=== PATIENT | female | born 1955 | race Caucasian/White ===

== ENCOUNTER → 2016-03-18 09:21 | Outpatient (CLI) | payer BC ==
[2015-10-17 10:50] VITALS: BMI 47.1
[~2016-03-18 09:21] MED LIST: ALDACTAZIDE 25/1 TAB PO; ASPIRIN81 MG PO; AUGMENTIN 875-11 TAB PO; BACTRIM DS TABL1 TAB PO; CLEOCIN HCL300 MG PO; COREG6.25 MG PO; DILANTIN100 MG PO; GABITRIL16 MG PO; GLUCOPHAGE1000 MG PO; LANTUS SOL100 UNIT/1 SQ; LISINOPRIL2.5 MG PO; LIVALO4 MG PO; LOZOL 2.5 MG T2.5 MG PO; NORCO 10/325 TA1 TA1 PO; NOVOLOG MI100 UNIT/1 SQ; PLAVIX75 MG PO; SYNTHROID50 MCG PO; TRILIPIX135 MG PO
[2016-03-21 13:14] LABS: TIAGABINE - TIAG 45.8 ng/ml (())
--- NOTE | 2016-03-31 07:17 | EEG ---
PATIENT:APOLINAR CHENEY DATE OF SERVICE: 03/18/16 MEDICAL RECORD: [id number] DATE OF : 53 LOCATION: [facility] ADMISSION DATE: 03/18/16 REFERRING PHYSICIAN: INTERPRETING PHYSICIAN: LAINA TORRES MD DATE OF SERVICE: 03/18/2016 Referred by myself as an outpatient. ELECTROENCEPHALOGRAM NUMBER: [id number]. DATE OF EXAMINATION: 03/18/2016 at 11:00 a.m. DATE OF : 1955. TECHNICAL DATA: This electroencephalographic recording consists of approximately 20 minutes of data collection utilizing the international 10/20 system of electrode placement and both referential and non-referential montages. Sixteen channels of electrocerebral recording are accompanied by a 17th channel dedicated to the electrocardiographic rhythm and 2 channels of electromyographic recording. Recording is performed in the awake and drowsy states utilizing activation by photic stimulation. ELECTROENCEPHALOGRAPHIC DATA: The awake state comprises approximately 60% of the recorded electrocerebral activity. Electromyographic artifact is prominent and rapid eye movements are seen. The posterior dominant background consists of a well-developed, symmetric, rhythmic, waxing and waning alpha activity of 8-9 Hz, which is suppressed by eye opening. The drowsy state comprises the remaining portion of the recorded electrocerebral activity. Electromyographic artifact is diminished and rapid eye movements are not seen. Also observed is an intermittent irregular, generalized and symmetric 2-3 Hz delta slowing, which occurs for periods of 1-2 seconds approximately once every 1-2 pages. No abnormal or focal slowing is identified. No epileptiform discharges are seen. Photic stimulation induces no abnormal change in the recorded electrocerebral activity. INTERPRETATION: Normal (awake and drowsy). This is a normal electroencephalographic recording. TRANSINT:[id number] Voice Confirmation ID: [id number] DOCUMENT ID: [id number] ELECTROENCEPHALOGRAM REPORT [id number] APOLINAR CHENEY LAINA TORRES MD at 0717 CC: [id number] DICTATION DATE: 03/19/16 0836 COURTESY CLERK: 03/19/16 0903 DEP CLI 03/18/16 [place] [address]
== END | disposition home or self-care (01) ==
LOC: D.CN 09:21
PROVIDERS: Psychiatry & Neurology Neurology
DX: G40.101 Localization-related (focal) (partial) symptomatic epilepsy and epileptic syndromes with simple partial seizures, not intractable, with status epilepticus (principal); G60.9 Hereditary and idiopathic neuropathy, unspecified; G21.8 Other secondary parkinsonism

== ENCOUNTER 2016-03-24 11:34 | Inpatient (IN) | payer BC ==
[~2016-03-24] VITALS: Ht 167.6 cm; Wt 154.3 kg
[2016-03-24] VITALS (7 sets, daily range): BP systolic 90–130; BP diastolic 50–74; BMI 48.8
[2016-03-24 12:32] LABS: BASOPHILS 0.3 % (0.0-2.0); EOSINOPHILS 0 % (0-7); HEMATOCRIT 44.2 % (36.0-48.0); HEMOGLOBIN 14.4 g/dL (12-16); IMMATURE GRANULOCYTES 0.5 % (0-5); LYMPHOCYTES 8.2 % (15-50); MCH 30.4 pg (26.0-34.0); MCHC 32.6 g/dL (31.0-37.0); MCV 93.4 fL (80.0-100.0); RBC 4.73 10x6/uL (4.00-5.40); RDW 14.7 % (11.5-14.5); WBC 7.9 10x3/uL (4.8-10.8)
[2016-03-24 12:33] LABS: PLATELET COUNT 143 10x3/uL (130-400)
[2016-03-24 13:04] LABS: APPEARANCE CLEAR (CLEAR); BILIRUBIN NEGATIVE (NEGATIVE); COLOR YELLOW (YELLOW); GLUCOSE 1000 mg/dL (NEGATIVE); KETONE SMALL mg/dL (NEGATIVE); LEUKOCYTE ESTERASE NEGATIVE (NEGATIVE); NITRITE NEGATIVE (NEGATIVE); PROTEIN 2+ mg/dL (NEGATIVE); UROBILINOGEN NORMAL (NORMAL)
[2016-03-24 13:05] LABS: BACTERIA FEW /hpf (NONE SEEN); EPITHELIAL CELLS 0-5 /hpf (0-5); RED CELLS - URINE 0-5 /hpf (0-5); WHITE CELLS - URINE NSEEN /hpf (0-5)
[2016-03-24 13:08] LABS: ALBUMIN 3.1 g/dL (3.4-5.0); ALKALINE PHOSPHATASE 67 U/L (46-116); ALT (SGPT) 40 U/L (10-68); BILIRUBIN - TOTAL 0.61 mg/dL (0.2-1.3); CALC OSMOLALITY 283 mosm/kg (275-300); CALCIUM 9.7 mg/dL (8.5-10.1); CARBON DIOXIDE 25.8 mmol/L (21.0-32.0); CHLORIDE - SERUM 98 mmol/L (98-107); CREATININE - SERUM 1.1 mg/dL (0.6-1.3); POTASSIUM - SERUM 5.1 mmol/L (3.5-5.1); PROTEIN - SERUM 7.2 g/dL (6.4-8.2); SODIUM 132 mmol/L (136-145); UREA NITROGEN 20 mg/dL (7-18); eGFR NON AFRICAN AMERICAN 53 mL/min (90-120)
[2016-03-24 13:09] LABS: GLUCOSE 388 mg/dL (74-106)
[2016-03-24 13:18] LABS: UDS - AMPHET NEGATIVE QUAL (NEGATIVE); UDS - BARB NEGATIVE QUAL (NEGATIVE); UDS - BENZO NEGATIVE QUAL (NEGATIVE); UDS - COCAINE NEGATIVE QUAL (NEGATIVE); UDS - METH NEGATIVE QUAL (NEGATIVE); UDS - OPIATE NEGATIVE QUAL (NEGATIVE); UDS - PCP NEGATIVE QUAL (NEGATIVE); UDS - THC NEGATIVE QUAL (NEGATIVE)
[2016-03-24 13:23] LABS: AMYLASE - SERUM 55 U/L (25-115); CREATINE KINASE 135 UL (21-215); LIPASE 155 U/L (73-393); PHENYTOIN (DILANTIN) 2.1 ug/mL (10.0-20.0); PRO BNP 216 pg/mL (0-125); THYROID STIMULATING HORMONE 0.92 uIU/mL (0.36-3.74)
[2016-03-24 13:26] LABS: ALCOHOL - BLOOD (MEDICAL) < 3.0 mg/dL (0.0-10.0); TROPONIN-I 0.244 ng/mL (0.000-0.060)
[2016-03-24 13:45] LABS: KETONE - SERUM MODERATE mg/dL (NEGATIVE)
[2016-03-24 17:13] LABS: CKMB 0.5 U/L (0.0-3.6); CREATINE KINASE 172 UL (21-215)
--- NOTE | 2016-03-24 17:14 | NUR ---
Patient Name: APOLINAR LAM Admission Status: ER Accout number: [id number] Admission Date: 03-24-2016 : 1955 Admission Diagnosis: Sepsis, elevated troponin Attending: ROB Current LOS: 1 Anticipated DC Date: 03/28/16 Planned Disposition: Return home with spouse. Primary Insurance: SupportLocal OUT OF STATE Discharge Planning Comments: CM met with patient and spouse to complete initial discharge assessment. Patient alert but not oriented. Spouse gave consent to complete assessment. Patient lives at home with him (spouse). She is normally A&O x 3 and independent in her ADL's. Patient went to bed last pm not feeling well but was not confused. He noticed something was wrong this am when she got out of the shower with 2 bras on, no underwear on, and had not rinsed the shampoo out of her hair. DME at home is a walker, cane, and motorized wheelchair. She checks her sugar 4 times a day. He is unsure of dc needs at this time but the dc plan is for her to return home with him at discharge. Cm will continue to follow and assist with dc plans/needs. Road Mender: Leidy Adame RN, [facility] [phone] Is the patient Alert and Oriented? No * PCP Dr. Wray * Pharmacy [facility] * Preadmission Environment Home with Family * ADLs Independent * Equipment Cane Glucometer Rolling Walker Wheelchair * List name and contact numbers for known caregivers / representatives who currently or will assist patient after discharge: Chago Lam - Spouse - (C) [phone] (H) [phone] * Community resources currently utilized None * Please name any agencies selected above. none * Additional services required to return to the preadmission environment? No * Can the patient safely return to the preadmission environment? Yes * Has this patient been hospitalized within the prior 30 days at any hospital? No
[2016-03-24 17:17] LABS: TROPONIN-I 0.305 ng/mL (0.000-0.060)
--- NOTE | 2016-03-24 18:05 | NUR ---
REC'D FROM ER VIA BED. HOOKED UP TO CM. HR 119 ST. SATTING 96% ON 6L SIMPLE MASK. RR 32. EVEN AND UNLABORED. RIGHT HAND PIV WITH CLINDAMYCIN HANGING. HOOKED TO PUMP AND INFUSING NOW. NO S/S OF INFILTRATION AT PIV. SCD'S P[LACED.HERRERA PATENT TO GRAVITY. REDNESS TO LEFT LOWER LEG. PPP. MATHEWS. FOLLOWS COMMANDS. CONFUSED. REORIENTED TO PLACE AND TIME. EDEMATOUS. +2 EDEMA UPPER EXT. +3 EDEMA TO LOWER EXT. FALL PRECAUTION TEACHING DONE.CLWR. CPOC.
--- NOTE | 2016-03-24 18:20 | NUR ---
DR. FRYE AT BEDSIDE.
--- NOTE | 2016-03-24 19:00 | NUR ---
REPORT RECEIVED AND ASSESSMENT COMPLETED. WILL ENTER IN FLOWSHEET.PT FAMILY IN ROOM. DISCUSSED DISEASE PROCESS, AND MEDICATIONS. PT VERY LETHARGIC. WILL CONTINUE TO MONITOR.
--- NOTE | 2016-03-24 19:12 | NUR ---
PUT SS ORDER IN UNDER VO DR. SANCHEZ/HARJIT WISEMAN RN/RUSS GUTIERREZ RN
--- NOTE | 2016-03-24 21:00 | NUR ---
AT BEDSIDE ADMISSION HX OBTAINED THROUGH HIM. PT MORE ALERT NOW THOUGH STILL CONFUSED. ABLE TO FOLLOW OMMANDS THOUGH CONTINUES TO REMOVE OXYGEN MASK REPEATEDLY CAUSING SAT TO DROP QUICKLY. WILL MONITOR.
--- NOTE | 2016-03-24 23:00 | NUR ---
REASSESSMENT COMPLETED. SEE FLOWSHEET FOR DETAILS. WILL MONITOR.
[2016-03-25] VITALS (24 sets, daily range): BP systolic 89–157; BP diastolic 47–78; Ht 167.6 cm; Wt 154.3 kg
--- NOTE | 2016-03-25 01:00 | NUR ---
PT CONTINUES TO HAVE TACHYPNEA. TEMP IS 100.7 AT THIS TIME. WILL CONTINUE TO MONITOR.
--- NOTE | 2016-03-25 03:48 | NUR ---
ASSESSMENT COMPLETED. SEE FLOWSHEET FOR DETAILS. OBTAINED NEW IV ACCESS IN LEFT WRIST. VSS. WILL CONTINUE TO MONITOR.
--- NOTE | 2016-03-25 05:01 | NUR ---
FSBS 416. NOTIFIED DR JOLLY. INSTRUCTED TO GIVE 15 UNITS REGULAR INSULIN IV PUSH INSTEAD OF USING THE SLIDING SCALE. PT BLOOD SUGAR HAS RANGED BETWEEN [phone] THROUGHOUT THE NIGHT WHEN SLIDING SCALE WAS APPLIED.
[2016-03-25 05:03] LABS: BASOPHILS 0.2 % (0.0-2.0); EOSINOPHILS 0 % (0-7); HEMATOCRIT 37.8 % (36.0-48.0); HEMOGLOBIN 11.9 g/dL (12-16); IMMATURE GRANULOCYTES 0.2 % (0-5); MCH 30.1 pg (26.0-34.0); MCHC 31.5 g/dL (31.0-37.0); MEAN PLATELET VOLUME 9.4 fL (7.4-10.4); NEUTROPHILS 77.6 % (40-80); PLATELET COUNT 138 10x3/uL (130-400); RBC 3.96 10x6/uL (4.00-5.40); RDW 14.9 % (11.5-14.5); WBC 9.2 10x3/uL (4.8-10.8)
[2016-03-25 05:05] LABS: MCV 95.5 fL (80.0-100.0)
[2016-03-25 05:54] LABS: ALBUMIN 2.9 g/dL (3.4-5.0); ALKALINE PHOSPHATASE 57 U/L (46-116); ALT (SGPT) 35 U/L (10-68); BILIRUBIN - TOTAL 0.55 mg/dL (0.2-1.3); CARBON DIOXIDE 26.3 mmol/L (21.0-32.0); CHLORIDE - SERUM 100 mmol/L (98-107); CKMB 1.4 U/L (0.0-3.6); POTASSIUM - SERUM 4.6 mmol/L (3.5-5.1); PROTEIN - SERUM 6.9 g/dL (6.4-8.2); SODIUM 134 mmol/L (136-145)
[2016-03-25 05:56] LABS: CALC OSMOLALITY 289 mosm/kg (275-300); CREATINE KINASE 418 UL (21-215); CREATININE - SERUM 1.7 mg/dL (0.6-1.3); TROPONIN-I 0.259 ng/mL (0.000-0.060); UREA NITROGEN 27 mg/dL (7-18); eGFR NON AFRICAN AMERICAN 32 mL/min (90-120)
[2016-03-25 05:57] LABS: GLUCOSE 413 mg/dL (74-106)
--- NOTE | 2016-03-25 10:26 | NUR ---
DR TORRES HERE THIS AM, CARDIOLOGY HERE THIS AM. ABG'S DRAWN AND CALLED TO DR MCKEON, BIPAP PLACED BY RT.
--- NOTE | 2016-03-25 13:07 | NUR ---
PT INC OF BOWEL AGAIN, BATH AND LINENS CHANGED. POSITIONED FOR COMFORT.
--- NOTE | 2016-03-25 13:08 | NUR ---
PT PULLING AT BIPAP, UNABLE TO REDIRECT. MOUTH CARE AND ATTEMPTING TO ADDRESS NEEDS. PT CONFUSED AND CONTINUES TO PULL AT BIPAP. OBTAINED RESTRAINT ORDERS AGAIN AND BUE RESTRAINTS APPLIED.
--- NOTE | 2016-03-25 15:03 | NUR ---
1500-ATTEMPTING TO GET OOB, HOB FLAT TO PULL PT UP AND PT TURNED BLUE AND RESP STOPPED, IMMEDIATELY BAGGED W/100% BVM AND CODE CALLED. CPR INDICATED AND ACLS UTILIZED. RETURN OF SPON RESP AND HR. DR ENRIQUEZ HERE, DR MCKEON HERE. PT'S HERE AFTERWARDS.
--- NOTE | 2016-03-25 15:05 | NUR ---
HAIM'S DRAWN AND DR MCKEON NOTIFIED.
[2016-03-25 16:32] LABS: ANION GAP 14.8 mmol/L (8-16); CALCIUM 8.3 mg/dL (8.5-10.1); CARBON DIOXIDE 23.3 mmol/L (21.0-32.0); CREATININE - SERUM 1.9 mg/dL (0.6-1.3); PHOSPHOROUS 4.1 mg/dL (2.5-4.9); POTASSIUM - SERUM 4.1 mmol/L (3.5-5.1)
[2016-03-25 16:33] LABS: TROPONIN-I 0.281 ng/mL (0.000-0.060)
--- NOTE | 2016-03-25 17:37 | NUR ---
PT NOT TAKING MEDS BY MOUTH. CALLED DR TORRES AND LEFT MESSAGE ON ANSWERING SERVICE. AWAITING CALL BACK. DR MONAE NOTIFIED OF EARLIER EVENTS, PEA DURING CODE AND RESP CODE. NO NEW ORDERS AT PRESENT.
--- NOTE | 2016-03-25 18:43 | NUR ---
1643- PT DID TAKE MEDS BY MOUTH WITH NO PROBLEMS, DID REC'D CALL BACK FROM DR TORRES AND PLACED ORDER FOR IVP DILANTIN.
--- NOTE | 2016-03-25 19:30 | NUR ---
REPORT RECEIVED AND CARE ASSUMED. INITIAL SHIFT ASSESSMENT COMPLETED SEE FLOWSHEET. PT IS CURRENTLY ON 80% BIPAP. VSS AT THIS TIME. OCCASIONAL PAC NOTED. ALL ALARMS ON AND VERIFIED. TUBING LABELED APPROPRIATE AND IS CURRENT. PT BEING MONITORED PER STANDARD ICU PROTOCOL.
--- NOTE | 2016-03-25 20:45 | NUR ---
SPOKE WITH RAZ SUNSHINE FOR DR. ENRIQUEZ. NOTIFIED HER OF GLUCOSE OF 519 WITH A REPEAT CHECK OF 522. ORDERS TO FOLLOW SLIDING SCALE OF 28UNITS AND RECHECK GLUCOSE PER ORDER IN 6 HOURS SCHEDULED. NO OTHER INTERVENTION AT THIS TIME.
--- NOTE | 2016-03-25 21:00 | NUR ---
FAMILY, DAUGHTER, AT BEDSIDE UPDATE GIVEN QUESTIONS ANSWERED. PASSWORD VERIFIED
--- NOTE | 2016-03-25 23:00 | NUR ---
REASSESSMENT COMPLETED. NO SIGNIFICANT CHANGE. PT CONTINUES TO GRAB AT BIPAP MASK WHEN RESTRAINTS LOOSENED TO TURN AND REPOSTION AND ALLOW ACTIVE ROM. PT CONTINUES TO REQUIRES RESTRAINTS FOR SAFETY. MASK REMOVED VERY BRIEFLY FOR MEDS, ORAL CARE AND DRINKS OF WATER. PT NOTED TO RAPIDLY DESAT IF OFF LONGER THAN FEW SECONDS. PT CONTINUES WITH CONFUSION.
[2016-03-26] VITALS (28 sets, daily range): BP systolic 92–184; BP diastolic 46–108
--- NOTE | 2016-03-26 01:00 | NUR ---
CONTINUE TO PROVIDE TOTAL CARE FOR PT. PT RESISTANT TO CARE AT THIS TIME. CONFUSION PERSISTS
--- NOTE | 2016-03-26 02:00 | NUR ---
SPOKE WITH RAZ SUNSHINE FOR DR. ENRIQUEZ NOTIFIED HER OF GLUCOSE OF 449 AND REPEAT RESULT OF 453. ORDERS TO AGAIN FOLLOW SLIDING SCALE AND RECHECK IN THE SCHEDULED 6 HOURS. NO FURTHER INTERVENTION AT THIS TIME
[2016-03-26 04:27] LABS: BASOPHILS 0.3 % (0.0-2.0); EOSINOPHILS 0.4 % (0-7); HEMATOCRIT 34.3 % (36.0-48.0); HEMOGLOBIN 10.7 g/dL (12-16); IMMATURE GRANULOCYTES 0.1 % (0-5); LYMPHOCYTES 14.4 % (15-50); MCH 29.7 pg (26.0-34.0); MCHC 31.2 g/dL (31.0-37.0); MCV 95.3 fL (80.0-100.0); MEAN PLATELET VOLUME 9.3 fL (7.4-10.4); NEUTROPHILS 69.8 % (40-80); PLATELET COUNT 119 10x3/uL (130-400); RDW 15.2 % (11.5-14.5); WBC 7.6 10x3/uL (4.8-10.8)
--- NOTE | 2016-03-26 04:45 | NUR ---
PT LEAVING UNIT FOR CT OF HEAD. PT ON OXIMIZER 15L. TOLERATING WELL.
[2016-03-26 05:01] LABS: ALBUMIN 2.5 g/dL (3.4-5.0); ANION GAP 9.2 mmol/L (8-16); BILIRUBIN - TOTAL 0.43 mg/dL (0.2-1.3); CALCIUM 8.8 mg/dL (8.5-10.1); CARBON DIOXIDE 28.9 mmol/L (21.0-32.0); POTASSIUM - SERUM 4.1 mmol/L (3.5-5.1); PROTEIN - SERUM 6.4 g/dL (6.4-8.2); THYROID STIMULATING HORMONE 1.71 uIU/mL (0.36-3.74)
[2016-03-26 05:04] LABS: TROPONIN-I 0.326 ng/mL (0.000-0.060)
--- NOTE | 2016-03-26 05:10 | NUR ---
PT RETURNED FROM CT. TOLERATED WELL. COMPLETED BATH DONE. LINENS CHANGED. PT LEFT ON OXIMIZER @ 15L TOLERATING WELL AT THIS TIME. LIPS AND MOUTH VERY DRY. ORAL CARE DONE.
--- NOTE | 2016-03-26 07:00 | NUR ---
PT HAS BECOME INCREASINGLY ANXIOUS WITH INCREASE OF RESP AND HEART RATE. PLACED BACK ON BIPAP TO REST PT. PT REPOSITIONED FOR COMFORT. PT TEACHING DONE. REPORT GIVEN TO DIXIE HOFFMANN
--- NOTE | 2016-03-26 13:04 | NUR ---
PATIENT IS ON 15 LITER OXYMIZER. SHE IS NOT ABLE TO ANSWER QUESTIONS. SHE IS GOING TO BE PUT BACK ON BIPAP. PATIENT IS CONFUSED AND UNABLE TO ANSWER QUESTIONS AND I HAVE NOT SEEN ANY FAMILY HERE TO INTERVIEW AT THIS TIME. CM TO FOLLOW.
--- NOTE | 2016-03-26 15:25 | NUR ---
NUTRITION MONITORING & EVAL CHART REVIEWED. NURSING AND AIDE ATTENDING TO PT NEEDS. PT NOT APPROPRIATE FOR DM DIET EDU AT THIS TIME. RD WILL ATTEMPT TO SEE PT WHEN TRANSFERED TO FLOOR. RD FOLLOWING
--- NOTE | 2016-03-26 19:44 | NUR ---
WHILE RECEIVING REPORT FROM OFF SHIFT PT REMOVED BIPAP AND WENT INTO RESP ARREST WITH HR 34 SINUS BRIAN. RT IMMEDIATELY AT BEDSIDE AND CALLED CODE AT 1905. COMPRESSIONS PERFORMED X 1 MINUTE BEFORE ATTAINING A PULSE. SEE CODE BLUE SHEET FOR DETAILS. PT WAS BAGGED THROUGHOUT THE ENTIRE EPISODE. INTUBATED BY DR. JOLLY WITH 7.5 ETT SECURED AT AT 25 WHICH WAS ADVANCED TO [address] JOLLY ORDERS. OGT WAS INSERTED AND PLACEMENT VERIFIED. VENT INITIATED. DIPROVAN INITIATED FOR SEDATION. RECTAL TUBE ALSO INSERTED FOR CONSTANT RUNNY BROWN STOOL AND SPECIMEN SENT TO LAB FOR ANALYSIS. RAZ VASQUEZ NOTIFIED OF CODE AND DEAN CHENEY, , NOTIFIED QUESTIONS ANSWERED. DR. MIKE WADE
--- NOTE | 2016-03-26 21:09 | NUR ---
RECEIVED CALL FROM DR. MCKEON. NOTIFIED HIM OF CODE, ABG SETTINGS, VENT SETTINGS. NEW ORDERS RECEIVED READ BACK AND VERIFIED.
--- NOTE | 2016-03-26 21:10 | NUR ---
DAUGHTER HER TO VISIT. QUESTIONS ANSWERED AND UPDATE GIVEN. PT CONTINUES TO BE SOMEWHAT AGGITATED AND WITH COUGHING. MEDS GIVEN PER APR. ADJUSTING DIPROVAN TO ACHEIVE ADEQUATE SEDATION. CURRENTLY AT 45MCG.
--- NOTE | 2016-03-26 23:00 | NUR ---
SHIFT REASSESSMENT COMPLETED. PT CONTINUES TO BE DIFFICULT TO SEDATE. CURRENTLY ON 50MCG OF DIPROVAN.
--- NOTE | 2016-03-26 23:20 | NUR ---
CALL RECEIVED FROM ROMARIO PASSWORD VERIFIED. UPDATE GIVEN AND QUESTIONS ANSWERED.
[2016-03-27] VITALS (24 sets, daily range): BP systolic 93–129; BP diastolic 45–58
--- NOTE | 2016-03-27 00:37 | NUR ---
LAB FOR STOOL REVIEWED. CDIF NEGATIVE
--- NOTE | 2016-03-27 01:00 | NUR ---
CONTINUE TO PROVIDE TOTAL CARE FOR PT. RIGHT UPPER ARM PICC DRESSING CHANGED WITH STERILE TECHNIQUE. SITE WNL NO REDNESS OR EDEMA.
--- NOTE | 2016-03-27 03:00 | NUR ---
SHIFT REASSESSMENT COMPLETED. RT HAS DECREASED FIO2 TO 90% BASED ON ABG RESULTS. DIPROVAN IS NOW AT 50 MCG/KG/MIN FOR SEDATION. RECTAL TUBE IRRIGATED WITH 20 CC WATER. NO OTHER SIGNIFICANT CHANGES
--- NOTE | 2016-03-27 03:42 | NUR ---
RADIOLOGY AT BEDSIDE FOR AM CXR
[2016-03-27 05:01] LABS: BASOPHILS 0.3 % (0.0-2.0); EOSINOPHILS 1.5 % (0-7); HEMATOCRIT 31.1 % (36.0-48.0); LYMPHOCYTES 21.5 % (15-50); MCH 30.1 pg (26.0-34.0); MCHC 32.2 g/dL (31.0-37.0); MCV 93.7 fL (80.0-100.0); MEAN PLATELET VOLUME 9.6 fL (7.4-10.4); MONOCYTES 12.2 % (2-11); NEUTROPHILS 64.5 % (40-80); PLATELET COUNT 142 10x3/uL (130-400); RBC 3.32 10x6/uL (4.00-5.40); WBC 7.8 10x3/uL (4.8-10.8)
[2016-03-27 05:17] LABS: ALBUMIN 2.4 g/dL (3.4-5.0); BILIRUBIN - TOTAL 0.45 mg/dL (0.2-1.3); CALCIUM 8.5 mg/dL (8.5-10.1); CARBON DIOXIDE 25.5 mmol/L (21.0-32.0); CREATININE - SERUM 2.5 mg/dL (0.6-1.3); POTASSIUM - SERUM 3.5 mmol/L (3.5-5.1); PROTEIN - SERUM 5.9 g/dL (6.4-8.2)
--- NOTE | 2016-03-27 06:00 | NUR ---
SPOUSE HERE TO VISIT. QUESTIONS ANSWERED AND UPDATE GIVEN. SPOUSE, DEAN, STATES HE WANTS TO SPEAK WITH DR. MCKEON ABOUT PLAN OF CARE AND CODE STATUS. THIS INFORMATION IS TO BE PASSED ON TO NEXT NURSE TO CALL WHEN DR. MCKEON IS IN THE UNIT. PT IS NOW COMFORTABLY RESTING ALTHOUGH WHEN TURNIING AND PROVIDING CARE QUICKLY BECOMES RESISTANT.
--- NOTE | 2016-03-27 07:45 | NUR ---
REPORT RECD PT CARE ASSUMED. PT IS SEDATED ON VENTILATOR, AROUSES TO STIMULATION. S1S2 NOTED, SR PER CM. ADVENTICIOUS LUNG SOUNDS AUSCULTATED BILAT. ABD IS OBESE, BUT FEELS FIRM TO PALPATION. PPP-WEAK, EDEMA NOTED. SCDS/HERRERA/RT IN PLACE. VSS, WILL CONTINUE TO MONITOR.
--- NOTE | 2016-03-27 09:00 | NUR ---
PT FAMILY AT BEDSIDE FOR VISITATION. UPDATE PROVIDED TO SON.
--- NOTE | 2016-03-27 09:29 | NUR ---
I SPOKE WITH PATIENT'S SPOUSE, DEAN. HE STATES PATIENT LIVES AT HOME. SHE WAS INDEPENDENT IN HER ADL'S PRIOR TO COMING TO THE HOSPITAL. HE STATES HE WILL DRIVE HER HOME AT DISCHARGE. SHE HAS TWO DAUGHTERS: ENRICO [phone] AND ROMARIO [phone]. PATIENT'S PCP IS DR. HOOKS. SHE GETS HER MEDS AT [facility] ON [address]. SHE HAS A WALKER. PATIENT'S DENIES HER EVER HAVING HOME HEALTH CARE. THERE ARE 4 STEPS TO ENTER HER HOME. UNDETERMINED DISCHARGE NEEDS AT THIS TIME. CM TO FOLLOW.
--- NOTE | 2016-03-27 09:53 | NUR ---
PT REPOSTIONED PER PROTOCOL. ORAL CARE AND SUCTION PROVIDED.
--- NOTE | 2016-03-27 10:19 | NUR ---
NUTRITION MONITORING & EVAL CHART REVIEWED. PT NOW ON VENT. DIPRIVAN @ 44 CC/HR PROVIDING 1160 KCAL/DAY. RECOMMEND PULMOCARE @ 20 CC/HR. ADJUST WHEN DIPRIVAN RATE REDUCED. RD FOLLOWING
--- NOTE | 2016-03-27 13:58 | NUR ---
TUBE FEEDING INTITATED AT 20 CC/HR PER ORDER. STARTING RESIDUAL IS 0.
[2016-03-27 15:44] LABS: COMPLEMENT C4 18.6 mg/dL (17.4-52.2)
--- NOTE | 2016-03-27 16:00 | NUR ---
PT HAS RECTAL TUBE IN PLACE BUT HAS LEAKED AROUND. PT RECEIVED A FULL BED BATH AND LINEN CHANGE AND REINSERTION OF RT. PT IN PLACE AND DRAINING WILL AT THIS TIME.
[2016-03-27 16:50] LABS: ERYTHROCYTE SEDIMENTATION RATE 72 mm/hr (0-30)
--- NOTE | 2016-03-27 18:32 | NUR ---
PT REPOSITIONED PER PROTOCOL. ORAL CARE AND SUCTION PROVIDED. URINE/STOOL SAMPLES SENT TO LAB. VSS
[2016-03-27 18:34] LABS: POTASSIUM - URINE 64.4 MMOL/L (12.0-62.0)
[2016-03-27 18:34] LABS: PROTEIN - URINE 114.5 mg/dL (0.0-11.9)
[2016-03-27 18:37] LABS: CREATININE - URINE 292.8 mg/dL (30-125); PRO/CRE RATIO URINE 0.4 mg/g
[2016-03-27 18:47] LABS: APPEARANCE HAZY (CLEAR); BILIRUBIN NEGATIVE (NEGATIVE); COLOR YELLOW (YELLOW); GLUCOSE NEGATIVE (NEGATIVE); KETONE NEGATIVE (NEGATIVE); LEUKOCYTE ESTERASE TRACE (NEGATIVE); NITRITE NEGATIVE (NEGATIVE); PROTEIN 1+ mg/dL (NEGATIVE); SPECIFIC GRAVITY 1.015 (1.005-1.020); UROBILINOGEN NORMAL (NORMAL)
[2016-03-27 18:48] LABS: EPITHELIAL CELLS 0-5 /hpf (0-5); RED CELLS - URINE >50 /hpf (0-5)
[2016-03-27 18:49] LABS: BACTERIA MANY /hpf (NONE SEEN)
--- NOTE | 2016-03-27 19:00 | NUR ---
REPORT RECEIVED AND CARE ASSUMED. INITIAL SHIFT ASSESSMENT COMPLETED SEE FLOWSHEET. PT CONTINUES TO BE SUPPORTED PER VENTILATOR AND RECEIVING DIPROVAN FOR SEDATION. VENT SETTINGS FOR ASSESSMENT. OGT PLACEMENT VERIFIED WITH AIR BOLUS AND RESIDUAL CHECKED <5CC REPLACED AND TUBE FEEDING, PULMOCARE AT 20ML/HR RESUMED VIA PUMP. RIGHT UPPER ARM PICC LINE WITH DRESSING CDI AND DATED 03/27/16 WITH IVF PER IV FLOWSHEET. ABD IS DISTENDED AND SOMEWHAT FIRM. RECTAL TUBE LEAKING. PERICARE PROVIDED AND NOTE RECTAL TUBE KINKED WHICH CONTRIBUTED TO LEAKAGE. F/C PATENT URINE DARK AND WITH SEDIMENT. BILAT SCD'S ARE ON. EXTREMETIES ARE ELEVATED ON PILLOWS AND HEELS ARE FLOATED. PT BEING MONITORED PER STANDARD ICU PROTOCOL WITH ALL ALARMS SET AND VERIFIED. ALL TUBING IS NOTED TO BE CURRENT LABELED AND DATED APPROPRIATELY
--- NOTE | 2016-03-27 21:00 | NUR ---
DAUGHTER HERE TO VISIT. QUESITONS ANSWERED AND UPDATE GIVEN. VSS NO ACUTE CHANGES
--- NOTE | 2016-03-27 23:00 | NUR ---
SHIFT REASSESSMENT COMPLETED NO CHANGES NOTED
[2016-03-28] VITALS (24 sets, daily range): BP systolic 113–147; BP diastolic 50–78
--- NOTE | 2016-03-28 01:00 | NUR ---
PT CONTINUES TO BE TOTAL CARE RESTING COMFORTABLY WITH ADEQUATE SEDATION
--- NOTE | 2016-03-28 03:00 | NUR ---
SHIFT REASSESSMENT COMPLETED NO CHANGES
[2016-03-28 04:57] LABS: BASOPHILS 0.6 % (0.0-2.0); EOSINOPHILS 3.9 % (0-7); HEMATOCRIT 31.2 % (36.0-48.0); IMMATURE GRANULOCYTES 0.4 % (0-5); LYMPHOCYTES 21.8 % (15-50); MCHC 32.1 g/dL (31.0-37.0); MCV 93.7 fL (80.0-100.0); MONOCYTES 12.6 % (2-11); NEUTROPHILS 60.7 % (40-80); PLATELET COUNT 169 10x3/uL (130-400); RBC 3.33 10x6/uL (4.00-5.40); WBC 7.3 10x3/uL (4.8-10.8)
[2016-03-28 05:38] LABS: ALBUMIN 2.2 g/dL (3.4-5.0); ALKALINE PHOSPHATASE 83 U/L (46-116); ALT (SGPT) 34 U/L (10-68); CALC OSMOLALITY 301 mosm/kg (275-300); CALCIUM 8.5 mg/dL (8.5-10.1); CARBON DIOXIDE 22.9 mmol/L (21.0-32.0); CHLORIDE - SERUM 106 mmol/L (98-107); CREATINE KINASE 502 UL (21-215); CREATININE - SERUM 2.4 mg/dL (0.6-1.3); GLUCOSE 250 mg/dL (74-106); MAGNESIUM - SERUM 1.9 mg/dL (1.8-2.4); PHOSPHOROUS 2.7 mg/dL (2.5-4.9); POTASSIUM - SERUM 3.4 mmol/L (3.5-5.1); PROTEIN - SERUM 6.4 g/dL (6.4-8.2); SODIUM 141 mmol/L (136-145); UREA NITROGEN 49 mg/dL (7-18); VANCOMYCIN - TROUGH 8.6 ug/mL (10.0-20.0); eGFR NON AFRICAN AMERICAN 22 mL/min (90-120)
[2016-03-28 05:39] LABS: C-REACTIVE PROTEIN 19.7 mg/dL (0.0-0.9); CKMB 2.3 U/L (0.0-3.6)
[2016-03-28 07:08] LABS: CREATININE - URINE 196.1 mg/dL (30-125); PROTEIN - URINE 110.3 mg/dL (0.0-11.9)
[2016-03-28 08:05] LABS: ERYTHROCYTE SEDIMENTATION RATE 95 mm/hr (0-30)
[2016-03-28 08:20] LABS: ANTI-STREPTOLYSIN O 26.5 IU/mL (0.0-200.0)
--- NOTE | 2016-03-28 09:53 | NUR ---
NUTRITION MONITORING & EVAL CHART REVIEWED. REMAINS SEDATED ON VENT. DIPRIVAN @ 44 CC/HR. PULMOCARE @ 20 CC/HR. RD FOLLOWING
[2016-03-28 16:58] LABS: LYMPH - BF 20 %; MACROPHAGES BF 39 %; MESOTHELIALS BF 14 %; NEUT - BF 27 %
--- NOTE | 2016-03-28 19:00 | NUR ---
REPORT RECEIVED AND CARE ASSUMED. INITIAL SHIFT ASSESSMENT COMPLETED. PT'S RESPIRATORY STATUS REMAINS SUPPORTED VIA VENT. SETTINGS PER ASSESSEMENT FLOWSHEET. PT SEDATED PER DIPROVAN CURRENTLY AT 55MCG/KG/MIN PER PUMP ANY CHANGES DOCUMENTED ON IV FLOWSHEET. OGT WITH PULMOCARE AT 20ML/HR PER PUMP. PLACEMENT VERIFIED PER AIR BOLUS. RESIDUAL CHECKED AND AT 5ML. RETURNED AND FLUSHED WITH WATER. RATE INCREASED TO 30ML/HR WITH GOAL OF 40ML/HR. RIGHT UPPER ARM PICC DRESSING CDI DATED 03/27/16 IVF PER FLOWSHEET. PT DID RECEIVED A BRONCH TODAY. SUCTIONING DONE, ORAL CLEAR SECRETIONS, ETT YELLOW TINGED, SUBGLOTTAL ALLEN. RECTAL TUBE PATENT WITH THIN WATERY DIRRAHEA HAS BEEN REPEATED CHECKED FOR CDT WITH NEGATIVE RESULTS CURRENTLY RECEIVING LACTULOSE FOR ELEVATED AMMONIA. F/C PATENT WITH DARK CLOUDY URINE WITH SEDIMENT. PT REMAINS TOTAL CARE WITH ALL ADLS PROVIDED FOR. RT AT BEDSIDE FOR TREATMENT. PT BEING MONITORED PER STANDARD ICU PROTOCOL WITH ALL ALARMS SET AND VERIFIED. NOTE ALL TUBING AND IVF PROPERLY LABELED AND DATED WITH ALL CURRENT AT THIS TIME.
[2016-03-28 20:08] LABS: SPE - A/G RATIO 0.8 (0.7-1.7); SPE - ALBUMIN 2.5 g/dL (2.9-4.4); SPE - ALPHA-1 GLOBULIN 0.3 g/dL (0.0-0.4); SPE - GAMMA GLOBULIN 0.9 g/dL (0.4-1.8); SPE - M-SPIKE Not Observed g/dL (Not Observed); SPE - TOTAL PROTEIN 5.7 g/dL (6.0-8.5)
--- NOTE | 2016-03-28 21:00 | NUR ---
HS MEDS GIVEN WITHOUT DIFFICULTY AFTER VERIFYING PLACEMENT OF OGT. RESIDUAL CHECKED AND AT 5ML RETURNED
--- NOTE | 2016-03-28 21:14 | NUR ---
DAUGHTER AND HER SO HER TO VISIT QUESTIONS ANSWERED AND UPDATE GIVEN
--- NOTE | 2016-03-28 22:50 | NUR ---
CALL RECEIVED FROM FRANCISCO DOSS, PASSWORD CONFIRMED. UPDATE GIVEN AND QUESTIONS ANSWERED
[2016-03-29] VITALS (24 sets, daily range): BP systolic 111–153; BP diastolic 47–63
--- NOTE | 2016-03-29 01:10 | NUR ---
PATIENT RESTING IN BED WITH EYES CLOSED ON VENT, SETTINGS REMAIN UNCHANGED FROM PREVIOUS ASSESSMENT. ORAL CARE/SUCTIONING PROVIDED, PATIENT REPOSITIONED FOR COMFORT. NO FURTHER NEEDS AT THIS TIME, ALL VSS AND WILL CONTINUE TO MONITOR.
--- NOTE | 2016-03-29 03:20 | NUR ---
REASSESSMENT COMPLETE PER FLOWSHEET, PATIENT RESTING IN BED SEDATED ON VENT. VENT SETTINGS ARE UNCHANGED FROM PREVIOUS ASSESSMENT, PATIENT OXYGEN SAT 97% ON 50%. CRACKLES NOTED BILATERAL UPPER WITH DIMINISHED LOWER LOBES, BREATHING IS SHALLOW. EYES PERRLA @ 3MM WITH BRISK RESPONSE, SCLERA IS CLEAR. ORAL CARE/SUCTIONING PROVIDED, PATIENT REPOSITIONED FOR COMFORT. NO FURTHER NEEDS AT THIS TIME, ALL VSS AND WILL CONTINUE TO MONITOR.
[2016-03-29 04:33] LABS: BASOPHILS 0.4 % (0.0-2.0); EOSINOPHILS 4.6 % (0-7); HEMOGLOBIN 9.9 g/dL (12-16); IMMATURE GRANULOCYTES 0.7 % (0-5); LYMPHOCYTES 19.7 % (15-50); MCH 29.9 pg (26.0-34.0); MCHC 31.9 g/dL (31.0-37.0); MCV 93.7 fL (80.0-100.0); MEAN PLATELET VOLUME 9.7 fL (7.4-10.4); NEUTROPHILS 64.6 % (40-80); PLATELET COUNT 199 10x3/uL (130-400); RBC 3.31 10x6/uL (4.00-5.40); RDW 14.9 % (11.5-14.5); WBC 7.4 10x3/uL (4.8-10.8)
[2016-03-29 04:47] LABS: ANION GAP 15.4 mmol/L (8-16); BILIRUBIN - TOTAL 0.35 mg/dL (0.2-1.3); CALCIUM 8.2 mg/dL (8.5-10.1); CARBON DIOXIDE 21.2 mmol/L (21.0-32.0); CREATININE - SERUM 1.7 mg/dL (0.6-1.3); POTASSIUM - SERUM 3.6 mmol/L (3.5-5.1); PROTEIN - SERUM 6.2 g/dL (6.4-8.2)
--- NOTE | 2016-03-29 05:00 | NUR ---
PATIENT RESTING IN BED SEDATED ON VENT, ORAL CARE/SUCTIONING PROVIDED. NS TUBING CHANGED PER PROTOCOL, LABELS AND SWAB CAPS IN USE. PATIENT REPOSITIONED FOR COMFORT, ALL VSS AND WILL CONTINUE TO MONITOR.
[2016-03-29 10:21] LABS: ANTI-GLOMERULAR BASMENT MEMBRN 4 units (0-20)
[2016-03-29 10:21] LABS: ANA REFLEX - DIRECT Negative (Negative)
[2016-03-29 15:22] LABS: AFB SPECIMEN PROCESSING Concentration (())
--- NOTE | 2016-03-29 19:40 | NUR ---
Assessment complete. See flowsheet. Pt sedated to reyna 2 with Propofol sedation infusing @ 55mcg/kg/min (44.9cc/hr) to right upper arm PICC line CDI no s/s infection with NS @ 50cc/hr. OET tube 8.0FR secure 25cm @ Lip to vent set SIMV Rate 15 TV 600 FiO2 @ 40% PEEP 8 PS 20. Lung sounds present fine crackles to all ibrahim with diminished lower lobes. HR SR with S1S2 auscultated. All peripheral pulses palpable. Generalized edema noted to all extremities. Capillary refill <3 seconds. OGT secure to pulmocare TF @ 45cc/hr. 0cc gastric resid aspirated. ABdomen obese and distended with BS present to all quadrants. Rectal tube secure retrieving liquid, brown stools. Cali secure retrieving concentrated, charisse urine. Temp 99.5F temporally. Pt repositioned to left side. HOB @ 30 degrees. Oral care completed with mouth moisturizer applied. Wrist restraints secure bilaterally. No s/s pain or distress. CPOC.
--- NOTE | 2016-03-29 21:40 | NUR ---
Pt repositioned to right side. HOB @ 30 degrees. Oral care completed per Martha RT with inline suctioning. PM meds administered. See MAR. No neuro changes to note. CPOC.
--- NOTE | 2016-03-29 23:40 | NUR ---
Reassessment complete. See flowsheet. Pt repositioned to back with HOB @ 30 degrees. Arms and heels remain bridged. Pt remains sedated to reyna 2 with NO IVF changes to note from previous assessment. PICC line site remains CDI; unchanged. OET tube rmeains secure to vent with no setting changes to note. Lung sounds continue to present coarse crackles to all ibrahim. Pt OET inline suctioned with white, thick sputum retrieved and strong, productive cough triggered. OGT secure to TF Pulmocare @ 45cc/hr. Gastric resid check yields 0cc content. Abdomen remains obese and distended with BS present to all quadrants. Cali remains secure retrieving concentrated, charisse urine. Bilat soft wrist restraints secure. linens clean/dry. Rectal tube secure retrieving liquid, brown stools. NO other changes to note. CPOC.
[2016-03-30] VITALS (24 sets, daily range): BP systolic 123–152; BP diastolic 46–63
--- NOTE | 2016-03-30 01:40 | NUR ---
Pt repositioned to left side. HOB @ 30 degrees. Oral care completed with mouth moisturizer applied. NO s/s pain or distress. No other changes to note. CPOC.
--- NOTE | 2016-03-30 03:40 | NUR ---
Reassessment complete. See flowsheet. Pt repositioned to back with HOB @ 30 degrees. Arms and heels remain bridged. Pt remains sedated to reyna 2 with NO IVF changes to note from previous assessment. PICC line site remains CDI; unchanged. OET tube rmeains secure to vent with no setting changes to note. Lung sounds continue to present coarse crackles to all ibrahmi. Pt OET inline suctioned with white, thick sputum retrieved and strong, productive cough triggered. OGT secure to TF Pulmocare @ 45cc/hr. Gastric resid check yields 0cc content. Abdomen remains obese and distended with BS present to all quadrants. Cali remains secure retrieving concentrated, charisse urine. Bilat soft wrist restraints secure. linens clean/dry. Rectal tube secure retrieving liquid, brown stools. NO other changes to note. CPOC.
[2016-03-30 04:48] LABS: BASOPHILS 0.9 % (0.0-2.0); EOSINOPHILS 4.3 % (0-7); HEMATOCRIT 32.4 % (36.0-48.0); HEMOGLOBIN 10.2 g/dL (12-16); IMMATURE GRANULOCYTES 1.7 % (0-5); LYMPHOCYTES 19.4 % (15-50); MCH 29.7 pg (26.0-34.0); MCHC 31.5 g/dL (31.0-37.0); MCV 94.5 fL (80.0-100.0); MEAN PLATELET VOLUME 9.5 fL (7.4-10.4); MONOCYTES 10.1 % (2-11); NEUTROPHILS 63.6 % (40-80); PLATELET COUNT 271 10x3/uL (130-400); RBC 3.43 10x6/uL (4.00-5.40); RDW 15.1 % (11.5-14.5); WBC 7.6 10x3/uL (4.8-10.8)
[2016-03-30 05:15] LABS: ALBUMIN 2.1 g/dL (3.4-5.0); ANION GAP 17.4 mmol/L (8-16); BILIRUBIN - TOTAL 0.4 mg/dL (0.2-1.3); CALCIUM 8.6 mg/dL (8.5-10.1); CARBON DIOXIDE 19.3 mmol/L (21.0-32.0); CREATININE - SERUM 1.4 mg/dL (0.6-1.3); PHOSPHOROUS 2.1 mg/dL (2.5-4.9); POTASSIUM - SERUM 3.7 mmol/L (3.5-5.1); PROTEIN - SERUM 6.8 g/dL (6.4-8.2)
--- NOTE | 2016-03-30 05:40 | NUR ---
Pt repositioned to right side. HOB @ 30 degrees. Oral care completed with mouth moisturizer applied. VSS. CPOC.
--- NOTE | 2016-03-30 07:00 | NUR ---
REC'D REPORT FROM OUT GOING RN - PT RESTING IN BED, WITH EYES CLOSED, HOB 30 DEGREES, CONTINUED MECH VENTIALTION. CONT POC
--- NOTE | 2016-03-30 08:30 | NUR ---
SISTER CALLED GAVE UPDATE ON PT'S STATUS. ASKED FOR DATE FOR PT TAKING HOME MEDS. SISTER AGREED TO NOTIFY FOR THAT INFORMATION. ASSESSMENT COMPLETE - MEDIATIONS GIVEN - FAMILY AT BEDSIDE - REVIEWED PT'S PLAN OF CARE.
[2016-03-30 09:40] LABS: CKMB 0.6 U/L (0.0-3.6)
[2016-03-30 09:42] LABS: TROPONIN-I 0.083 ng/mL (0.000-0.060)
--- NOTE | 2016-03-30 10:00 | NUR ---
ACCU CHECK COMPLETE (SEE FLOW SHEET) ADMIN INSULIN PER ORDERS. (SEE MAR)
--- NOTE | 2016-03-30 11:00 | NUR ---
- DEAN - CALLED INFORMED THIS RN - PT TOOK ALL HOME MEDS ON LAST FRIDAY A.M. AND HE WOULD ASK ANOTHER FAMILY MEMBER TO BRING A CURRENT MED LIST. THANKED FOR UPDATE ON PT. ASSESSMENT COMPLETE
--- NOTE | 2016-03-30 13:08 | NUR ---
RT AT BEDSIDE FOR TREATMENT - CONTINUE POC
--- NOTE | 2016-03-30 15:30 | NUR ---
RT AT BEDSIDE - SEE RT FLOW SHEET - PT RESTING
--- NOTE | 2016-03-30 16:00 | NUR ---
I&Os COMPLETED - SEE FLOW SHEET.
--- NOTE | 2016-03-30 18:14 | NUR ---
DTR CALLED TO CHECK ON PT - HAD CORRECT PASSWORD - ANSWERED ALL QUESTIONS. CONT POC
--- NOTE | 2016-03-30 19:40 | NUR ---
Assessment complete. See flowsheet. Pt sedated to reyna 2 with Propofol sedation infusing @ 55mcg/kg/min (44.9cc/hr) to right upper arm PICC line CDI no s/s infection with NS @ 50cc/hr. OET tube 8.0FR secure 25cm @ Lip to vent set SIMV Rate 15 TV 600 FiO2 @ 35% PEEP 8 PS 20. Lung sounds present crackles to all ibrahim with diminished lower lobes. HR SR with S1S2 auscultated. All peripheral pulses palpable. Generalized edema noted to all extremities. Capillary refill <3 seconds. OGT secure to pulmocare TF @ 45cc/hr. 110cc gastric resid aspirated. Abdomen obese and distended with BS present to all quadrants. Rectal tube secure retrieving liquid, brown stools. Cali secure retrieving concentrated, charisse urine. Temp 100.1F temporally. Pt repositioned to left side. HOB @ 30 degrees. Oral care completed with mouth moisturizer applied. Wrist restraints secure bilaterally. No s/s pain or distress. CPOC.
--- NOTE | 2016-03-30 21:40 | NUR ---
Pt repositioned to right side. HOB @ 30 degrees. Oral care completed with mouth moisturizer applied.
--- NOTE | 2016-03-30 23:30 | NUR ---
Reassessment complete. See flowsheet. Pt remains sedated to reyna 2 with Propofol sedation infusing @ 55mcg/kg/min. NO IVF changes to note. OET tube remains secure to vent with no setting changes to note. Lung sounds present crackles to all ibrahim. Pt OET inline suctioned with thick, byrd sputum retrieved and strong, productive cough triggered. OGT remains secure to TF Pulmocare @ 45cc/hr. Gastric resid check yields 50cc TF colored content aspirated and reinstilled. BS +. Rectal tube remains secure retrieving liquid, brown stools. HR SR. Cali secure retrieving concentrated, charisse urine. Pt repositioned to back with HOB @ 30 degrees. Arms and heels bridged. Linens remain clean and dry. Temp 99.4F temporally. Bilat soft wrist restraints secured. CPOC.
[2016-03-31] VITALS (25 sets, daily range): BP systolic 108–158; BP diastolic 46–65
--- NOTE | 2016-03-31 01:30 | NUR ---
Pt repositioned to left side. HOB @ 30 degrees. Oral care completed with mouth moisturizer applied. VSS> CPOC.
--- NOTE | 2016-03-31 03:30 | NUR ---
Reassessment complete. See flowsheet. Pt remains sedated to reyna 2 with Propofol sedation infusing @ 55mcg/kg/min. No neuro changes to note. CVL site CDI with NS @ 10cc/hr with Propofol sedation. OET tube remains secure to vent with no setting changes to note. Lung sounds present coarse crackles to all ibrahim. Pt OET inline suctioned with thick, byrd sputum retrieved. OET tube remains secure to Pulmocare TF infusing @ 45cc/hr. Gastric residual check yields 0cc content aspirated. BS present to all quadrants. Cali secure retrieving concentrated, charisse urine. Arms and heels bridged. NO other changes to note. Linens remains clean and dry. CPOC.
[2016-03-31 04:37] LABS: BASOPHILS 0.6 % (0.0-2.0); EOSINOPHILS 5.1 % (0-7); HEMATOCRIT 31.7 % (36.0-48.0); HEMOGLOBIN 9.9 g/dL (12-16); IMMATURE GRANULOCYTES 4.8 % (0-5); LYMPHOCYTES 26.7 % (15-50); MCHC 31.2 g/dL (31.0-37.0); MCV 96.1 fL (80.0-100.0); MEAN PLATELET VOLUME 9.2 fL (7.4-10.4); MONOCYTES 11.2 % (2-11); NEUTROPHILS 51.6 % (40-80); RDW 15.2 % (11.5-14.5); WBC 7.8 10x3/uL (4.8-10.8)
[2016-03-31 04:39] LABS: PLATELET COUNT 347 10x3/uL (130-400)
[2016-03-31 04:55] LABS: BILIRUBIN - TOTAL 0.33 mg/dL (0.2-1.3); CALCIUM 7.3 mg/dL (8.5-10.1); CARBON DIOXIDE 18.6 mmol/L (21.0-32.0); CREATININE - SERUM 1.3 mg/dL (0.6-1.3); POTASSIUM - SERUM 3.6 mmol/L (3.5-5.1); PROTEIN - SERUM 6.6 g/dL (6.4-8.2)
--- NOTE | 2016-03-31 05:30 | NUR ---
Pt repositioned to right side. HOB @ 30 degrees. Oral care completed.
--- NOTE | 2016-03-31 07:16 | EEG ---
PATIENT:APOLINAR CHENEY DATE OF SERVICE: 03/24/16 MEDICAL RECORD: [id number] DATE OF : 53 LOCATION:D.[facility].ICU ADMISSION DATE: 03/24/16 REFERRING PHYSICIAN: INTERPRETING PHYSICIAN: LAINA TORRES MD DATE OF SERVICE: 03/25/2016 Referred as an inpatient by myself, currently in room 2312. ELECTROENCEPHALOGRAM NUMBER: [id number]. DATE OF EXAMINATION: 03/25/2016 at 1:30 p.m. TECHNICAL DATA: This electroencephalographic recording consists of approximately 20 minutes of data collection utilizing the international 10/20 system of electrode placement and both referential and non-referential montages. Sixteen channels of electrocerebral recording are accompanied by a 17th channel dedicated to the electrocardiographic rhythm and 2 channels of electromyographic recording. Recording is performed entirely in the lethargic state utilizing activation by photic stimulation. ELECTROENCEPHALOGRAPHIC DATA: The entirety of the recorded electrocerebral activity is performed in the lethargic state. Electromyographic artifact is diminished. Rapid eye movements are not seen. A posterior dominant background is not well developed. The predominant electrocerebral activity is continuous triphasic waves with a fairly classic bifrontal predominance recurring with a frequency of approximately 1.5 Hz throughout the recording. This pattern does not alter during the recording. No sharp waves are identified. Photic stimulation induces no change in the recorded electrocerebral activity. INTERPRETATION: Triphasic waves, bifrontal (lethargy). This electroencephalographic recording demonstrates the presence of triphasic waves that are generally correlated with a metabolic encephalopathy. TRANSINT:[id number] Voice Confirmation ID: [id number] DOCUMENT ID: [id number] LAINA TORRES MD at 0716 CC: [id number] DICTATION DATE: 03/26/16 0702 ADVERTISING CLERK: 03/26/16 1051 ADM IN [facility] [address] [place] [address]
[2016-03-31 16:28] LABS: APPEARANCE CLOUDY (CLEAR); BILIRUBIN NEGATIVE (NEGATIVE); GLUCOSE NEGATIVE (NEGATIVE); KETONE NEGATIVE (NEGATIVE); LEUKOCYTE ESTERASE TRACE (NEGATIVE); NITRITE NEGATIVE (NEGATIVE); PROTEIN 1+ mg/dL (NEGATIVE); UROBILINOGEN NORMAL (NORMAL)
[2016-03-31 16:29] LABS: BACTERIA MODERATE /hpf (NONE SEEN); COLOR YELLOW (YELLOW); EPITHELIAL CELLS 0-5 /hpf (0-5); RED CELLS - URINE 25-50 /hpf (0-5); WHITE CELLS - URINE 0-5 /hpf (0-5)
--- NOTE | 2016-03-31 16:42 | NUR ---
0700 ASSESSMENT COMPLETE PER FLOWSHEET. 0900 FAMILY AT BEDSIDE UPDATE GIVEN. 1200 COMPLETE BATH GIVEN LINEN CHANGED. REPOSTIONED. MOUTHCARE DONE. 1630 ALL CULTURES AND CDT COLLECTED PER RUSS GUTIERREZ AND SENT TO LAB.
--- NOTE | 2016-03-31 19:45 | NUR ---
RECEIVED PATIENT SEDATED IN BED WITH EYES CLOSED ON VENT, ASSESSMENT COMPLETED PER FLOWSHEET. PATIENT SEDATED, OPENS EYES TO VOICE AND DEMONSTRATES WITHDRAWL FROM PAIN. EYES PERRLA @ 3MM WITH BRISK RESPONSE, SCLERA IS WHITE. ETT 8.0 @ 25CM NOTED, VENT SETTINGS R-12 V-600 02-35% P-7 PS-20. NG TUBE R NARE, PULMOCARE INFUSING @ 45ML/HR, GOAL SETTING. S1/S2 NOTED WITH PATIENT NSR ON TELEMETRY, RATE IS RHYTHMIC AND REGULAR. BREATHING IS SHALLOW AND REGULAR, CRACKLES NOTED BILATERAL UPPER WITH DIMINISHED LOWER. ABDOMEN IS DISTENDED AND SOFT, BOWEL SOUNDS ACTIVE X4. HERRERA SECURED IN PLACE, DARK YELLOW URINE NOTED IN COLLECTION BAG. FECAL TUBE SECURED, LIWUID BROWN STOOL NOTED IN COLLECTION BAG. SCD IN USE BILATERAL, REMOVED AND REPLACE FOR ASSESSMENT. ALL PULSES PALPABLE WITH SLIGHT WEAKNESS NOTED IN ALL EXTREMITIES. R UPPER ARM PICC NOTED PATENT WITH FLUIDS INFUSING, SEE FLOW SHEET. ORAL CARE SUCTIONING PROVIDED, PATIENT REPOSITIONED FOR COMFORT. UNABLE TO ASSESS PAIN DUE TO SEDATION, NO FURTHER NEEEDS AT THIS TIME. ALL VSS AND WILL CONTINUE TO MONITOR.
--- NOTE | 2016-03-31 21:00 | NUR ---
PATIENT AND SON VISITED PRIOR TO REGULAR HOURS, UPDATED FAMILY ON CURRENT STATUS. HAD QUESTIONS ABOUT VENT, EXPLAINED FUNCTION AND MONITORING OF VENT. STATES UNDERSTANDING, NO FURTHER WQUESTIONS AT THIS TIME AND WILL RETURN FOR 0900 VISITATION. ORAL CARE/SUCTIONING PROVIDED, NO FURTHE NEEDS AT THIS TIME. ALL VSS AND WILL CONTINUE TO MONITOR.
--- NOTE | 2016-03-31 23:15 | NUR ---
REASSESSMENT COMPLETE PER FLOWSHEET, PATIENT RESTING IN BED WITH EYES CLOSED ON VENT. VENT SETTINGS UNCHANGED FROM PREVIOUS ASSESSMENT, OXYGEN SAT 98% ON 35% O2. CRACKLES NOTED BILATERAL UPPER WITH DIMINISHED LOWER, PATIENT NSR ON TELEMETRY. ORAL CARE/SUCTIONING PROVIDED, PATIENT REPOSITIONED FOR COMFORT. ALL VSS AND WILL CONTINUE TO MONITOR.
[2016-04-01] VITALS (24 sets, daily range): BP systolic 114–165; BP diastolic 47–65
--- NOTE | 2016-04-01 01:00 | NUR ---
PATIENT RESTING IN BED WITH EYES CLOSED ON VENT, SETTINGS ARE UNCHANGED FROM PREVIOUS ASSESSMENT. IV LINES CHANGED ER PROTOCOL, NEW ENTERAL FEED BAGS IN USE. ORAL CARE/SUCTIONING PROVIDED, PATIENT REPOSITIONED FOR COMFORT. ALL VSS AND WILL CONTINUE TO MONITOR.
--- NOTE | 2016-04-01 03:00 | NUR ---
REASSESSMENT COMPLETE PER FLOWSHEET, PATIENT RESTING IN BED WITH EYES CLOSED ON VENT. VENT SETTINGS UNCHANGED FROM PREVIOUS ASSESSMENT, PATIENT OXYGEN SAT 97% ON 35% O2. FINE CRACKLES NOTED BILATERAL UPPER WITH DIMINISHED LOWER, PATIENT HR IS NSR ON TELEMETRY. ORAL CARE/SUCTIONING PROVIDED, PATIENT REPOSITIONED FOR COMFORT. ALL VSS AND WILL CONTINUE TO MONITOR.
[2016-04-01 05:02] LABS: BASOPHILS 0.9 % (0.0-2.0); EOSINOPHILS 3.9 % (0-7); HEMATOCRIT 30.5 % (36.0-48.0); HEMOGLOBIN 9.9 g/dL (12-16); IMMATURE GRANULOCYTES 5.8 % (0-5); MCH 31.6 pg (26.0-34.0); MCHC 32.5 g/dL (31.0-37.0); MCV 97.4 fL (80.0-100.0); MONOCYTES 10.5 % (2-11); NEUTROPHILS 55.9 % (40-80); PLATELET COUNT 375 10x3/uL (130-400); RBC 3.13 10x6/uL (4.00-5.40); RDW 15.4 % (11.5-14.5); WBC 8.9 10x3/uL (4.8-10.8)
[2016-04-01 05:33] LABS: ANION GAP 23.4 mmol/L (8-16); CALCIUM 7.4 mg/dL (8.5-10.1); CREATININE - SERUM 1.3 mg/dL (0.6-1.3); MAGNESIUM - SERUM 1.9 mg/dL (1.8-2.4); PHOSPHOROUS 2.4 mg/dL (2.5-4.9); POTASSIUM - SERUM 3.6 mmol/L (3.5-5.1)
[2016-04-01 05:35] LABS: CARBON DIOXIDE 12.2 mmol/L (21.0-32.0)
--- NOTE | 2016-04-01 07:00 | NUR ---
REPORT RECEIVED. ASSESSMENT COMPLETED. PATIENT IN SEMIFOWLERS POSITION WITH NO VISUAL CUES OF DISTRESS NOTED.
--- NOTE | 2016-04-01 07:33 | NUR ---
PATIENTS SISTER CALLED. KNEW PASSWORD. UPDATE GIVEN. ALL QUESTIONS ANSWERED.
--- NOTE | 2016-04-01 09:19 | NUR ---
PATIENTS SPOUSE AND GRANDSON HERE TO VISIT. UPDATE GIVEN. ALL QUESTIONS ANSWERED.
[2016-04-01 10:12] LABS: ANTI-GLOMERULAR BASMENT MEMBRN 3 units (0-20)
--- NOTE | 2016-04-01 10:12 | NUR ---
NUTRITION MONITORING & EVAL CHART REVIEWED. PT REMAINS SEDATED ON VENT. DIPRIVAN @ 44 CC/HR. PULMOCARE @ 45 CC/HR. TOTAL KCAL PER DAY 2780. [address] RD FOLLOWING
--- NOTE | 2016-04-01 11:52 | NUR ---
DR FRYE HERE TO SEE PATIENT. HE ADJUSTED THE RATE TO 6 FROM 12. HE ALSO REQUESTED THAT THE SEDATION BE LOWERED SOME. PROPOFOL DECREASED TO 50 MCG/KG/MIN. WILL LOWER SLOWLY TO WAKE UP SOME BUT NOT TOO MUCH.
--- NOTE | 2016-04-01 12:02 | NUR ---
DR FRYE SPEAKING WITH SPOUSE. HE STATED HE WANTED SEDATION TO BE STOPPED TO SEE WHAT HAPPENS.
--- NOTE | 2016-04-01 12:28 | NUR ---
PATIENT OPENS EYES TO COMMAND. WHEN ASKED TO FOLLOW FINGER, AT FIRST SHE DID NOT, BUT ON THE FOURTH COMMAND, SHE DID TRACK IT TO THE LEFT BUT NOT THE RIGHT. SPOUSE AND GRANDSON IS AT BEDSIDE. HR 99 RR 23. SATS 94%. WILL CONTINUE TO MONITOR. PATIENTS SITUTATION HAS BEEN EXPLAINED TO HER. ENCOURAGEMENT TO NOT TRY TO FIGHT OR BITE THE TUBE HAS BEEN GIVEN.
--- NOTE | 2016-04-01 12:59 | NUR ---
SPOKE WITH DR FRYE ABOUT PATIENTS FEVER. NEW ORDERS RECEIVED.
--- NOTE | 2016-04-01 13:00 | NUR ---
PATIENTS HR UP TO 113, RR 40, SATS 94% ON 40% B/P 144/61, PATIENTS PRESSURE SUPPORT TURNED DOWN TO 15 AND RATE INCREASED TO 12. SEDATION RESTARTED, BOLUS GIVEN.
--- NOTE | 2016-04-01 13:01 | NUR ---
TYLENOL GIVEN PER PRN ORDERS FOR A TEMP OF 101.2 AX.
--- NOTE | 2016-04-01 13:35 | NUR ---
PATIENTS RR 51, HR 108, SATS 96% ON 40% B/P UP TO 158/50. ATIVAN 2MG GIVEN WELL ANOTHER BOLUS OF PROPOFOL PER PRN ORDERS.
[2016-04-01 13:47] LABS: FUNGUS STAIN Final report (())
--- NOTE | 2016-04-01 13:49 | NUR ---
THE OTHER HALF OF THE ATIVAN ORDER (2MG) GIVEN. PTS HR 109, RR 36-40, SATS 96%. ANOTHER BOLUS OF PROPOFOL ALSO GIVEN. WILL MONITOR.
--- NOTE | 2016-04-01 14:13 | NUR ---
PTS WITH NOTED TUBE FEEDING RUNNING OUT OF MOUTH. SPOT THE SIZE OF A 50 CENT PIECE NOTED ON TOWEL. RESIDUAL CHECKED AND WAS 10 ML. LISTENED TO LUNGS AND THERE WAS NO CHANGE IN THE WAY THEY SOUNDED. SUCTIONED OUT MOUTH AND DID ORAL CARE, NOTED THAT THE TIP OF THE OGT WAS RESTING IN THE PATIENT CHEEK. TUBE REMOVED FROM THE MOUTH. GOOD MOUTH CARE PERFORMED. WILL GATHER SUPPLIES TO REPLACE OGT.
--- NOTE | 2016-04-01 14:20 | NUR ---
RESPIRATORY HERE, DUE TO BEING UNABLE TO GET RATE DOWN WITH SEDATION AND ATIVAN, PATIENT PLACED ON ASSIST/CONTROL RATE 12, TV 600 FIO2 40%, PEEP 7. WILL MONITOR
--- NOTE | 2016-04-01 14:30 | NUR ---
16FR ANA ROSA LACKEY DROPED OG BY ALONZO, VEGETABLE WORKER ON FIRST TRY. PLACEMENT CONFIRMED WITH AIR BOLUS. WILL ALSO GET CXR TO VERIFY.
--- NOTE | 2016-04-01 14:40 | NUR ---
PCXR COMPLETED. WILL WAIT FOR RESULTS. PATIENT IS RESTING COMFORTABLY. B/P 147/59, HR 101, RR 27, SATS 96%. WILL CONTINUE TO MONITOR.
--- NOTE | 2016-04-01 15:09 | NUR ---
CXR RESULTS IN, OGT IS IN GOOD PLACEMENT. WILL RESTART FEEDINGS AND GIVE MEDS ORDERED.
[2016-04-01 17:10] LABS: ANCA - ANTIMYELOPEROXIDASE <9.0 U/mL (0.0-9.0); ANCA - ANTIPROTEINASE 3 <3.5 U/mL (0.0-3.5); ANCA - ATYPICAL <1:20 titer (Neg:<1:20); ANCA - CYTOPLASMIC <1:20 titer (Neg:<1:20); ANCA - PERINUCLEAR <1:20 titer (Neg:<1:20)
--- NOTE | 2016-04-01 17:19 | NUR ---
PATIENT REPOSITIONED FOR COMFORT. RECTAL TUBE NOT LEAKING AT THIS TIME. WILL MONITOR.
--- NOTE | 2016-04-01 19:00 | NUR ---
REPORT RECIEVED, INITIAL ASSESSMENT COMPLETE, PLEASE SEE FLOW SHEETS FOR DETAILS. CRACKLES THROUGHOUT LUNGS AND DIMINISHED IN LOWER LOBES. PT ON VENT AND HEAVILY SEDATED. PROPOFOL AT 50 MCG/KG/MIN. NO REACTIONS OF STIMULI. S1S2 AUSCULTATED. BOWEL SOUNDS ACTIVE X4 QUADRANTS. PPP. VSS ATT, BED LOW AND LOCKED. SCD'S ON AND RUNNING. WILL CONTINUE TO MONITOR.
--- NOTE | 2016-04-01 19:30 | NUR ---
ORAL CARE AND TURNING PROVIDED. VSS, WILL CONTINUE TO MONITOR.
--- NOTE | 2016-04-01 21:00 | NUR ---
ORAL CARE AND TURNING PROVIDED. VSS ATT, BED LOW AND LOCKED. RESTRAINTED REMOVED AND SKIN CHECKED, THEN RETIED WITH QUICK RELEASE KNOTS. WILL CONTINUE TO MONITOR.
--- NOTE | 2016-04-01 23:00 | NUR ---
ORAL CARE AND TURNING PROVIDED. RECTAL TUBE DISPLACED AND NO LONGER IN RECTUM. BM CLEAN UP PROVIDED. SEVERE EXCORIATION NOTED IN VICENTE AREA. HERRERA CARE PROVIDED AND BARRIOR CREAM APPLIED TO VICENTE AREA AND REDNESS ON BUTTOCKS. PT TOLERATED WELL. REASSESSMENT COMPLETE, PLEASE SEE FLOW SHEETS FOR DETAILS. RESTRAINTS CHECKED AND BED LOW AND LOCKED. VSS ATT, WILL CONTINUE TO MONITOR.
[2016-04-02] VITALS (24 sets, daily range): BP systolic 109–144; BP diastolic 38–54
--- NOTE | 2016-04-02 01:00 | NUR ---
ORAL CARE AND TURNING PROVIDED. BM CLEAMED UP, LARGE AMOUNT OF DIARRHEA. SKIN BARRIOR CREAN APPLIED TO VICENTE AREA AND BUTTOCKS AFTERWARDS. VSS ATT, BED LOW AND LOCKED, WILL CONTINUE TO MONITOR.
--- NOTE | 2016-04-02 01:57 | NUR ---
RESUDIAL CHECKED AND YEILDED 3 ML. VSS ATT, WILL CONTINUE TO MONITOR.
--- NOTE | 2016-04-02 03:14 | NUR ---
REASSESSMENT COMPLETE, PLEASE SEE FLOW SHEETS FOR DETAILS. ORAL CARE AND TURNING PROVIDED. VSS ATT, BED LOW AND LOCKED. WILL CONTINUE TO MONITOR.
[2016-04-02 03:53] LABS: BASOPHILS 0.7 % (0.0-2.0); EOSINOPHILS 3.2 % (0-7); HEMATOCRIT 30.4 % (36.0-48.0); HEMOGLOBIN 9.6 g/dL (12-16); IMMATURE GRANULOCYTES 3.1 % (0-5); LYMPHOCYTES 16.2 % (15-50); MCH 30.6 pg (26.0-34.0); MCHC 31.6 g/dL (31.0-37.0); MCV 96.8 fL (80.0-100.0); MEAN PLATELET VOLUME 9.1 fL (7.4-10.4); MONOCYTES 11.6 % (2-11); NEUTROPHILS 65.2 % (40-80); PLATELET COUNT 378 10x3/uL (130-400); RBC 3.14 10x6/uL (4.00-5.40); RDW 15.6 % (11.5-14.5)
[2016-04-02 04:33] LABS: ANION GAP 28.4 mmol/L (8-16); CALCIUM 7.8 mg/dL (8.5-10.1); CREATININE - SERUM 1.4 mg/dL (0.6-1.3); POTASSIUM - SERUM 3.6 mmol/L (3.5-5.1)
[2016-04-02 04:36] LABS: MAGNESIUM - SERUM 2.7 mg/dL (1.8-2.4); PHOSPHOROUS 3.4 mg/dL (2.5-4.9)
[2016-04-02 04:37] LABS: CARBON DIOXIDE 8.2 mmol/L (21.0-32.0)
--- NOTE | 2016-04-02 04:48 | NUR ---
RECIEVED CRITICAL LAB INFO FROM LAB THAT CARBON DIOXIDE IS 8.2 CRITICAL LOW. RESPIRATORY OBTAINED ABG'S FROM PT TWO HOURS AGO AND CARBON DIOXIDE WAS NOT CRITICALLY LOW. WILL GIVE IN REPORT TO BRCAROLINE TO DR FRYE'S ATTENTION WHEN HE COMES IN FOR ROUNDS.
--- NOTE | 2016-04-02 05:00 | NUR ---
ORAL CARE AND TURNING PROVIDED. VSS ATT, BED LOW AND LOCKED, WILL CONTINUE TO MONITOR.
--- NOTE | 2016-04-02 07:30 | NUR ---
NOTIFIED RT ALVIN REGARDING PT ETT. PER RADIOLOGIST REVIEW OF CXR, STATES ETT NEEDS TO BE ADVANCED APPROX 5CM.
--- NOTE | 2016-04-02 08:00 | NUR ---
SHIFT ASSESSMENT VIA FLOWSHEET, SEE FOR DETAILS.
--- NOTE | 2016-04-02 09:10 | NUR ---
PT's AT BEDSIDE, STATUS UPDATE PROVIDED.
--- NOTE | 2016-04-02 11:30 | NUR ---
REASSESSMENT VIA FLOWSHEET, SEE FOR DETAILS.
--- NOTE | 2016-04-02 12:30 | NUR ---
FAMILY AT BEDSIDE, UPDATED BY DR FRYE.
--- NOTE | 2016-04-02 15:30 | NUR ---
REASSESSMENT VIA FLOWSHEET, SEE FOR DETAILS.
--- NOTE | 2016-04-02 16:00 | NUR ---
COMPLETE BED BATH AND LINEN CHANGE COMPLETED.
--- NOTE | 2016-04-02 18:15 | NUR ---
NO VISITORS AT THIS TIME. ORAL CARE PROVIDED. SR ESTHER ON CM.
--- NOTE | 2016-04-02 19:00 | NUR ---
REPORT RECIEVED, INITIAL ASSESSMENT COMPLETE, PLEASE SEE FLOW SHEETS FOR DETAILS. ORAL CARE AND TURNING PROVIDED. CRACKLES AUSCULTATED IN ALL LUNG FEILDS AND DEMINISHED IN LOWER LOBES. BOWEL SOUNDS ACTIVE X4 QUADRANTS. HERRERA IN PLACE PRESENTS CONCENTRATED URINE. SCD'S ON AND RUNNING. PPP. ON VENT AND SEDATED. DOES NOT OPEN EYES BUT WIGGLES TOES TO STIMULI, NO OTHER RESPONSES NOTED ATT. VSS, BED LOW AND LOCKED. WILL CONTINUE TO MONITOR.
--- NOTE | 2016-04-02 21:00 | NUR ---
ORAL CARE AND TURNING PROVIDED. RESTRAINTS REMOVED FOR SKIN AND CIRCULATION INSPECTION AND BOTH WNL. RESTRAINTS RETIED ON SECURE SPOT ON BED WITH WUICK RELEASE KNOTS. VSS, BED LOW AND LOCKED, WILL CONTINUE TO MONITOR.
--- NOTE | 2016-04-02 21:40 | NUR ---
PT HAD BM, THIS WAS CLEANED UP AND PT POSITIONED ONTO AN AIR OVERLAY MATRESS. WHILE CLEANING UP BM, NOTED SKIN SLOUGHING ALL AROUND VICENTE AREA AND ON BUTTOCKS. ALSO NOTED 0.5CM X 0.5CM STAGE 2 PRESSURE ULCER. 3X3 MEPALEX APPLIED TO PRESSURE ULCER SITE CR DRESSING. SKIN BARRIOR SPRAY APPLIED TO ENTIRE VICENTE AREA AND BUTTOCKS. PT THEN PLACED ON LEFT SIDE AND PLACED IN FROG LEG POSITION TO DECREASE PRESSURE ON VICENTE AREA. VSS ATT, BED LOW AND LOCKED. WILL CONTINUE TO MONITOR.
--- NOTE | 2016-04-02 23:00 | NUR ---
HERRERA CARE PROVIDED USING BARDS WIPES.
--- NOTE | 2016-04-02 23:00 | NUR ---
REASSESSMENT COMPLETE, PLEASE SEE FLOW SHEETS FOR DETAILS. SEDATION VACATION PROVIDED. PT WOULD NOT OPEN EYES TO VERBAL COMMAND BUT DID WITH ORAL CARE. FOLLOWED COMMANDS TO WIGGLE TOES. SEDATION WAS TURNED BACK ON TO 50 MCG/KG/MIN. TURNING AND ORAL CARE PROVIDED. PT REPOSITIONED AND PUT BACK INTO FROG LEG POSITION WELL. NO CHANGES TO ASSESSMENTS OF LUNGS/HEART/GASTRIC/URINARY FROM PREVIOUS ASSESSMENT. PLEASE TAKE NOTE ON FLOW SHEETS FOR CHANGES TO SKIN. VSS ATT, BED LOW AND LOCKED. WILL CONTINUE TO MONITOR.
[2016-04-03] VITALS (24 sets, daily range): BP systolic 87–134; BP diastolic 30–75
--- NOTE | 2016-04-03 01:10 | NUR ---
ORAL CARE AND TURNING PROVIDED. STERILE CVL DRESSING CHANGE PERFORMED ON PICC LINE. VSS ATT. WILL CONTINUE TO MONITOR.
--- NOTE | 2016-04-03 03:26 | NUR ---
REASSESSMENT COMPLETE PER FLOWSHEET, PATIENT RESTING IN BED WITH EYES CLOSED ON VENT. VENT SETTINGS UNCHANGED FROM PREVIOUS ASSESSMENT, PATIENT OXYGEN SAT 97% ON 40% O2. CRACKLES NOTED BILATERAL UPPER WITH DIMINISHED LOWER LOBES. DIPRIVAN TUBING CHANGED PER PROTOCOL, SWAB CAPS AND STICKERS IN USE. ORAL CARE/SUCTIONING PROVIDED, PATIENT REPOSITIONED FOR COMFORT. ALL VSS AND WILL CONTINUE TO MONITOR.
[2016-04-03 04:45] LABS: BASOPHILS 0.5 % (0.0-2.0); EOSINOPHILS 2.9 % (0-7); HEMATOCRIT 28.7 % (36.0-48.0); HEMOGLOBIN 9.8 g/dL (12-16); IMMATURE GRANULOCYTES 2.5 % (0-5); LYMPHOCYTES 14.1 % (15-50); MCH 33.1 pg (26.0-34.0); MCHC 34.1 g/dL (31.0-37.0); MEAN PLATELET VOLUME 9.4 fL (7.4-10.4); PLATELET COUNT 360 10x3/uL (130-400); RBC 2.96 10x6/uL (4.00-5.40); RDW 15.5 % (11.5-14.5)
--- NOTE | 2016-04-03 05:00 | NUR ---
PATIENT RESTING IN BED WITH EYES CLOSED, SEDATED ON VENT. PATIENT HAD BM IN BED, FULL BED BATH/LINEN CHANGE PERFORMED. PATIENT HAS LARGE AREAS OF REDNESS AND EXCORIATION IN VICENTE AREA AND ON BUTTOCKS. AREAS CLEANED, BARRIER CREAM APPLIED, COVERED WITH PROTECTIVE DRESSING. NO FURTHER NEEDS AT THIS TIME, ALL VSS AND NICK CONTINUE TO MONITOR.
[2016-04-03 06:11] LABS: ANION GAP 18.5 mmol/L (8-16); BILIRUBIN - TOTAL 0.98 mg/dL (0.2-1.3); CALCIUM 6.9 mg/dL (8.5-10.1); CARBON DIOXIDE 18.5 mmol/L (21.0-32.0); CREATININE - SERUM 1.4 mg/dL (0.6-1.3); MAGNESIUM - SERUM 1.7 mg/dL (1.8-2.4); PROTEIN - SERUM 5.5 g/dL (6.4-8.2)
[2016-04-03 06:12] LABS: ALBUMIN 1.8 g/dL (3.4-5.0)
--- NOTE | 2016-04-03 07:15 | NUR ---
REPORT RECIEVED FROM WRAPPER SHEETER NURSE. ASSESSMENT COMPLTETE PER FLOWSHEET. SEDATED ON VENT. VSS AT THIS TIME. WILL CONT TO MONITOR FOR CHANGES THROUGHOUT SHIFT. BED ALARM ON AND IN LOW POSITION. BILATERAL WRIST RESTRAINTS IN PLACE.
--- NOTE | 2016-04-03 08:50 | NUR ---
INCONTINENT CARE BEING PROVIDED. PT TURNED AND REPOSITIONED TO ASSIST IN INCONTINENT CARE, ETT WAS AROUND SIDE RAIL. WHEN PT WAS TURNED ETT DISLOGED SLIGHTLY. RT CALLED IN ROOM, SUGGESTED TO GO AHEAD AND PULL ETT AND REINTUBATE. ER PHYSICIAN DR. KOWALSKI CALLED TO ASSIT WITH REINTUBATION. ORDERS RECIEVED FOR MEDICATIONS TO BE ADMINISTERED FOR INTUBATION. PT INTUBATED ON FIRST ATTEMPT WITH NO ISSUES. O2 SATURATION 98% POST REINTUABTION. WILL CONT TO ASSESS FOR CHANGES. WHEN ETT WAS PULLED OGT WAS ALSO PULLED. WILL REINSERT OGT.
--- NOTE | 2016-04-03 09:25 | NUR ---
NUTRITION MONITORING & EVAL CHART REVIEWED. PT REMAINS ON VENT. TUBE FEEDS CURRENTLY OFF. RECOMMEND RESUME PULMOCARE @ 45 CC/HR WHEN MEDICALLY FEASIBLE. RD FOLLOWING
--- NOTE | 2016-04-03 10:00 | NUR ---
OGT PLACED WITH FIRST ATTEMPT. NO ISSUES NOTED. TUBE FEEDS RESTARTED. WILL ASSESS FOR CHANGES.
--- NOTE | 2016-04-03 13:00 | NUR ---
CALLED AND UPDATE PROVIDED.
--- NOTE | 2016-04-03 15:00 | NUR ---
NO CHANGES NOTED FROM PREV ASSESSMENT. WILL CONT TO ASSESS.
--- NOTE | 2016-04-03 15:00 | NUR ---
PT TURNED AND REPOSITIONED FOR COMFORT. ORAL CARE PROVIDED.
--- NOTE | 2016-04-03 19:00 | NUR ---
REPORT RECIEVED, INITIAL ASSESSMENT COMPLETE, PLEASE SEE FLOW SHEETS FOR DETAILS. ON VENT AND SEDATED. OPEN EYES TO SPEACH, DOES NOT FOLLOW COMMANDS. VSS ATT, BED LOW AND LOCKED. BM CLEANED UP, FULL LINEN CHANGE PROVIDED. ORAL CARE AND TURNING PROVIDED. WILL CONTINUE TO MONITOR.
--- NOTE | 2016-04-03 21:00 | NUR ---
ORAL CARE AND TURNING PROVIDED. VSS ATT, BED LOW AND LOCKED. WILL CONTINUE TO MONITOR.
--- NOTE | 2016-04-03 23:00 | NUR ---
REASSESSMENT COMPLETE, PLEASE SEE FLOW SHEETS FOR DETAILS. ORAL CARE AND TURNING PROVIDED. HERRERA CARE PROVIDED. BED LOW AND LOCKED. VSS ATT, WILL CONTINUE TO MONITOR.
[2016-04-04] VITALS (24 sets, daily range): BP systolic 106–160; BP diastolic 41–76
--- NOTE | 2016-04-04 01:00 | NUR ---
ORAL CARE AND TURNING PROVIDED. ON VENT AND SEDATED. NO S&S OF ACUTE DISTRESS NOTED. VSS ATT, BED LOW AND LOCKED. WILL CONTINUE TO MONITOR.
--- NOTE | 2016-04-04 02:00 | NUR ---
RESRIDUAL YEILDS 15ML, THIS WAS RETURNED.
--- NOTE | 2016-04-04 03:00 | NUR ---
REASSESSMENT COMPLETE, PLEASE SEE FLOW SHEETS FOR DETAILS. ORAL CARE AND TURNING PROVIDED. BED LOW AND LOCKED. VSS ATT, WILL CONTINUE TO MONITOR.
[2016-04-04 04:02] LABS: BASOPHILS 0.6 % (0.0-2.0); EOSINOPHILS 3.6 % (0-7); HEMATOCRIT 27.6 % (36.0-48.0); HEMOGLOBIN 9.1 g/dL (12-16); IMMATURE GRANULOCYTES 1.4 % (0-5); LYMPHOCYTES 14.3 % (15-50); MCH 31.4 pg (26.0-34.0); MCV 95.2 fL (80.0-100.0); MEAN PLATELET VOLUME 9.3 fL (7.4-10.4); MONOCYTES 7.2 % (2-11); NEUTROPHILS 72.9 % (40-80); PLATELET COUNT 332 10x3/uL (130-400); RDW 15.3 % (11.5-14.5)
[2016-04-04 04:14] LABS: ALBUMIN 1.7 g/dL (3.4-5.0); ANION GAP 22.4 mmol/L (8-16); BILIRUBIN - TOTAL 0.65 mg/dL (0.2-1.3); C-REACTIVE PROTEIN 7.6 mg/dL (0.0-0.9); CALCIUM 7.4 mg/dL (8.5-10.1); CARBON DIOXIDE 15.6 mmol/L (21.0-32.0); CREATININE - SERUM 1.4 mg/dL (0.6-1.3); MAGNESIUM - SERUM 1.8 mg/dL (1.8-2.4); PROTEIN - SERUM 6.1 g/dL (6.4-8.2)
--- NOTE | 2016-04-04 05:00 | NUR ---
ORAL CARE AND TURNING PROVIDED. VSS ATT, WILL CONTINUE TO MONITOR.
[2016-04-04 05:09] LABS: ERYTHROCYTE SEDIMENTATION RATE 106 mm/hr (0-30)
--- NOTE | 2016-04-04 07:30 | NUR ---
ASSESSMENT COMPLETE. AROUSES TO VOICE. SEDATION VACATION STARTED. OPENS EYES, DOES NOT FOLLOW COMMANDS. GRIMACES TO PAIN BUT DOES NOT MOVE EXTREMETIES. PERRLA 3MM BRISK.S1S2 NOTED, RADIAL AND PEDAL PULSES PALP. NSR ON MONITOR. CRACKLES IN RUL, RML, FAROOQ. ON VENT. DIMINISHED LOWER LOBES BILAT. SEE FLOWSHEET FOR SETTINGS. MINIMAL INLINE SECRETIONS, COPIOUS ORAL SECRETIONS. ACTIVE BOWEL SOUNDS X4. PLACEMENT OF OGT VERIFIED BY AUDIBLE AIR INJECTION. TF AT 45ML/HR RESIDUAL 60. 2+ PITTING LOWER EXTREMETY EDEMA, 3+ UPPER EXTREMETY EDEMA. RT AC PICC PATENT, SEE IV FLOWSHEET. RESTRAINTS ON. FOR OTHER ASSESSMENT FINDINGS SEE FLOWSHEET. WILL CONTINUE TO MONITOR.
--- NOTE | 2016-04-04 08:25 | NUR ---
FAMILY ON PHONE. PASSWORD VERFIED, UPDATE PROVIDED.
--- NOTE | 2016-04-04 09:20 | NUR ---
NOTIFIED DR. FRYE OF CRITICAL [place]. NEW ORDERS RECEIVED. NO FAMILY AT BEDSIDE.
--- NOTE | 2016-04-04 09:40 | CN ---
PATIENT NAME:APOLINAR CHENEY MEDICAL RECORD: [id number] : 53 LOCATION:[id number] ADMIT DATE: 03/24/16 ACCOUNT: [id number] CONSULTING PHYSICIAN: ESDRAS FRYE MD REFERRING PHYSICIAN: ROSALIND VASQUEZ MD DATE OF CONSULTATION: 03/24/2016 CONSULT REQUESTING PHYSICIAN: Rosalind Vasquez MD. REASON FOR CONSULTATION: Acute mental status changes, nausea, vomiting and cough. HISTORY OF PRESENT ILLNESS: Ms. Cheney is a 60-year-old female who was brought into the ER by EMS. Now, the patient is awake, but she is confused. The history was taken by reviewing the patient's note and talking to the nursing staff. Ms. Carias is a 60-year-old female. According to the , the patient was doing well and this morning he noted that she is confused after the shower. She vomited and then she was not following the commands. In the ER here, she had a fever of 102.9. She was also hypoxic with elevated troponin level. Now, she is more responsive to command, but the patient is confused. REVIEW OF SYSTEMS: Mainly in the history of present illness. PAST MEDICAL HISTORY: 1. Parkinson disease. 2. Neuropathy. 3. Seizure disorder. 4. Diabetes mellitus type 2. 5. Hypothyroidism. 6. Hypertension. 7. Coronary artery disease. 8. History of skin cancer. PAST SURGICAL HISTORY: She had a skin biopsy for the cancer. ALLERGIES: SHE IS ALLERGIC TO PENTOBARBITAL WHICH CAUSING HER HALLUCINATIONS. SHE IS ALSO ALLERGIC TO MUSHROOM AND MARIJUANA. PRESENT MEDICATIONS: She is on Rocephin IV, clindamycin IV. Her other medication is reviewed. PERSONAL AND SOCIAL HISTORY: The patient is a nondrinker and nonsmoker. FAMILY HISTORY: None known. PHYSICAL EXAMINATION: GENERAL: Now, the patient is lying comfortably in bed. She is not in acute distress. VITAL SIGNS: The blood pressure is 126/51, pulse is 114, respirations 20, temperature 101.5, SpO2 of 97% on 6 liters. HEENT: Conjunctivae pink, sclerae nonicteric. NECK: Supple. No JVD. There is no neck rigidity. CHEST: Chest excursion is equal. There is no wheeze, no rales. HEART: Rhythm regular, normal sound, no murmur. CONSULT REPORT [id number] APOLINAR CHENEY ABDOMEN: Soft. Bowel sounds present. No hepatosplenomegaly. RECTAL: Deferred. EXTREMITIES: No cyanosis, no clubbing. There are 2+ pedal edema. SKIN: Warm, normal turgor. CENTRAL NERVOUS SYSTEM: There is no obvious cranial nerve abnormality. She is sleepy, but she is arousable. LABORATORY DATA: The ammonia level was 42. CBC: WBC 7.9, hemoglobin 14.4, hematocrit 44.2. The platelet count is 143. Neutrophil count 82%. Sodium 132, potassium 5.1, chloride 98, bicarbonate is 25.8, BUN is 20, creatinine is 1.1. AST is 58, ALT is 40, ammonia was 41. Lactic acid level of 1.4, albumin is 3.1. Troponin was 0.30. IMPRESSION: 1. Acute hypoxic respiratory failure. The chest x-ray, do appear clear, possible pneumonitis, possible pulmonary edema. 2. Acute mental status changes, possible metabolic encephalopathy, rule out meningitis. 3. Fever of 102, the etiology not clear. 4. History of seizure disorder. 5. Suspect obstructive sleep apnea. 6. Morbid obesity. 7. Hyperammonemia. 8. D-dimer with negative lungs perfusion scan. 9. History of coronary artery disease with elevated cardiac enzymes. 10. Parkinson disease. RECOMMENDATION: 1. We will follow up on the cultures. Continue the present antibiotic Zosyn and clindamycin. 2. Start on lactulose. 3. Follow up ammonia level. 4. Follow up on the blood cultures. Dr. Carcamo, Dr. Payne had been consulted. Dr. Vasquez, once again thanks for involving me in the care of Ms. Cheney. TRANSINT:[id number] Voice Confirmation ID: [id number] DOCUMENT ID: [id number] ESDRAS FRYE MD at 0940 CC: COLLETTE HOOKS M.D. [id number] DICTATION DATE: 03/24/161840 ORDNANCE ENGINEER: 03/24/162056 ADM IN [facility] [address] [place] [address]
--- NOTE | 2016-04-04 11:15 | NUR ---
REASSESSMENT COMPLETE, SEE FLOWSHEET FOR FINDINGS
--- NOTE | 2016-04-04 13:20 | NUR ---
THELMA BLOOD FOR SERUM MG AND POTASSIUM. PATIENT APPEARS CALM, NO DISTRESS NOTED PICC CONFIRMED TO BE IN PLACE BY CXR.
[2016-04-04 13:38] LABS: MAGNESIUM - SERUM 1.8 mg/dL (1.8-2.4)
--- NOTE | 2016-04-04 15:00 | NUR ---
REPLACING ELECTROLYTES PER PROTOCOL
--- NOTE | 2016-04-04 15:15 | NUR ---
REASSESSMENT COMPLETE. SEE FLOWSHEET FOR DETAILS. MINIMAL CHANGES
--- NOTE | 2016-04-04 17:15 | NUR ---
PATIENT CALM, OPENS EYES. DOES NOT FOLLOW COMMANDS. WILL CONTINUE TO MONITOR.
--- NOTE | 2016-04-04 19:30 | NUR ---
RECEIVED PATIENT IN BED WITH EYES CLOSED SEDATED ON VENT, ASSESSMENT COMPLETED PER FLOWSHEET. PATIENT OPENS EYES SPONTANEOUSLY BUT DOESN'T FOLLOW INSTRUCTIONS. EYES PERRLA @ 3MM WITH BRISK RESPONSE, SCLERA IS CLEAR. ETT 7.5 @ 25 CM NOTED, OGT WITH PULMOCARE @ 45ML/HR. S1/S2 NOTED WITH PATIENT NSR ON TELEMETRY, RHYTHMIC AND REGULAR. CRACKLES NOTED BILATERAL UPPER WITH DIMINISHED LOWER, VENT SETTINGS R-14 V-650 70% P-8 PS-10. ABDOMEN IS DISTENDED AND OBESE, BOWEL SOUNDS ACTIVE X4. HERRERA SECURED WITH CONCENTRATED SEJAL URINE NOTED, INCONTINENT OF BOWEL WITH LIQUID STOOLS. WEAKNESS NOTED IN ALL EXTREMITIES, ALL PULSES PALPABLE. PATIENT DENIES PAIN OR OTHER NEEDS AT THIS TIME, ALL VSS AND WILL CONTINUE TO MONITOR.
--- NOTE | 2016-04-04 21:00 | NUR ---
NO VISITORS AT THIS TIME, PATIENT RESTING IN BED SEDATED ON VENT. ORAL CARE/SUCTIONING PROVIDED, PATIENT REPOSTIONED FOR COMFORT. ALL VSS AND WILL CONTINUE MONITOR.
--- NOTE | 2016-04-04 23:00 | NUR ---
REASSESSMENT COMPLETE PER FLOWSHEET, PATIENT RESTING IN BED SEDATED ON VENT. VENT SETTINGS UNCHANGED FROM PREVIOUS, PATIENT OXYGEN 93%. ORAL CARE/SUCTIONING PROVIDED, PATIENT REPOSITIONED FOR COMFORT. ALL VSS AND WILL CONTINUE TO MONITOR.
[2016-04-05] VITALS (16 sets, daily range): BP systolic 100–139; BP diastolic 53–82
--- NOTE | 2016-04-05 01:00 | NUR ---
ORAL CARE/SUCTIONING PROVIDED, PATIENT REPOSITIONED FOR COMFORT. TUBE FEEDING BAG CHANGED PER PROTOCOL, RESIDUAL CHECKED AND 21ML ASPIRATED AND RETURNED. ALL VSS AND WILL CONTINUE TO MONITOR.
--- NOTE | 2016-04-05 03:00 | NUR ---
REASSESSMENT COMPLETE PER FLOWSHEET, PATIENT RESTING IN BED SEDATED ON VENT. VENT SETTING UNCHANGED FROM PREVIOUS ASSESSMENT, OXYGEN SAT 93% ON 70% O2. CRACKLES NOTED BILATERAL UPPER WITH DIMINISHED LOWER, BREATHING IS SHALLOW. ORAL CARE/SUCTIONING PROVIDED, PATIENT REPOSITIONED FOR COMFORT. NO FURTHER NEEDS AT THIS TIME, ALL VSS AND WILL CONTINUE TO MONITOR.
[2016-04-05 05:53] LABS: BASOPHILS 0.5 % (0.0-2.0); EOSINOPHILS 0.5 % (0-7); HEMOGLOBIN 8.5 g/dL (12-16); IMMATURE GRANULOCYTES 0.9 % (0-5); LYMPHOCYTES 11.3 % (15-50); MCH 29.3 pg (26.0-34.0); MCHC 30.4 g/dL (31.0-37.0); MCV 96.6 fL (80.0-100.0); MEAN PLATELET VOLUME 9.5 fL (7.4-10.4); MONOCYTES 7.4 % (2-11); NEUTROPHILS 79.4 % (40-80); PLATELET COUNT 333 10x3/uL (130-400); WBC 8.5 10x3/uL (4.8-10.8)
[2016-04-05 06:30] LABS: ALBUMIN 1.7 g/dL (3.4-5.0); ANION GAP 5.3 mmol/L (8-16); BILIRUBIN - TOTAL 0.31 mg/dL (0.2-1.3); CALCIUM 7.2 mg/dL (8.5-10.1); CREATININE - SERUM 1.3 mg/dL (0.6-1.3); POTASSIUM - SERUM 3.2 mmol/L (3.5-5.1); PROTEIN - SERUM 5.4 g/dL (6.4-8.2)
[2016-04-05 06:54] LABS: CARBON DIOXIDE 40.9 mmol/L (21.0-32.0)
--- NOTE | 2016-04-05 08:47 | EC ---
PATIENT:APOLINAR CHENEY DATE OF SERVICE: 03/24/16 SEX: F MEDICAL RECORD: [id number] DATE OF : [birth year] LOCATION:[facility] AGE OF PATIENT: 60 ADMISSION DATE: 03/24/16 REFERRING PHYSICIAN: INTERPRETING PHYSICIAN: ASHLIE MONAE MD ECHOCARDIOGRAM REPORT ECHO CHARGES 5 ECHO LIMITED CLINICAL DIAGNOSIS: FEVER,BACTEREMIA ASSESS FOR VEGATATIONS. ECHOCARDIOGRAPHIC MEASUREMENTS (adult normal given) AC root (d.<3.7cm) 2.8 LV Septum d (<1.2 cm> 1.5 Valve Excursion 1.6 LV Septum (systole) 1.7 Left Atria (s.<4.0cm> 4.4 LVPW d(<1.2cm) 1.4 RV (d.<2.3cm) 2.7 LVPW (sytole) 1.9 LV diastole(<5.6CM) 4.7 MV E-F(>70mm/sec) LV systole 2.5 LVOT Diameter 1.9 MV exc.(>10mm) Est.ejection fraction (50-75%) Pericardial Effusion N DOPPLER: LVIT A 135 E 152 LA RVSP 22.0 LVOT 132 AOP1/2T Asc. Ao 273 RVOT 84.0 RA PA 156 AV Gradient Peak 30.0 AV Mean 18.1 AV Area 1.1 MV Gradient Peak 9.0 MV Mean 4.3 MV Area COMMENTS: FULL ECHO DONE ON 03-25-16 [employer] Senior Officer: Jeniffer PEARSON Tobacco Feeder Catcher:Jeniffer Payne TAPE# PACS DATE OF SERVICE: 04/02/2016 Echocardiogram FINDINGS: 1. Left ventricular chamber size is within normal limits. Left ventricular systolic function is normal. Overall ejection fraction estimated at 60%. 2. No evidence of vegetative endocarditis is present. TRANSINT:[id number] Voice Confirmation ID: [id number] DOCUMENT ID: [id number] ECHOCARDIOGRAM REPORT [id number] KIRK CHENEYRON Yonatan ASHLIE MONAE MD at 0847 CC: [id number] DICTATION DATE: 04/03/16 1040 SAFETY ATTENDANT: 04/03/16 [address] [place] [address]
--- NOTE | 2016-04-05 10:53 | NUR ---
Nutrition Follow Up: Chart reviewed. Pt remain sedated and intubated. TF of Pulmocare infusing @ 45 ml/hr. I>O. Wt loss 4# noted. +BM x 4 04/05/16. Labs noted - Glucose continues elevated. Meds noted including Diprivan @ 24.5 ml/hr (providing 647 kcal/d), Bumex, Solu-Medrol, Lactulose, Flagyl, Lantus, Humalog. Pt receiving 1620 kcal, 67 g protein from current TF regimen. Total kcal per day received is 2267 kcal (Diprivan + TF). Rec continue current TF regimen. RD will continue to monitor pt progress.
--- NOTE | 2016-04-05 11:20 | NUR ---
CM REASSESSMENT NOTE: PATIENT REMAINS SEDATED/INTUBATED SODIUM BICARB DRIP AT 150MEQ
--- NOTE | 2016-04-05 13:13 | NUR ---
DR FRYE SPOKE TO PT'S AND PT'S HUSBANDS FATHER IN THE FAMILY ROOM WITH THIS RN AND CHARGE NURSE MARIEL LAWRENCE. STATES THAT HE HAS DECIDED TERMINAL EXTUBATION FOR 3 OCLOCK TODAY. INSTRUCTED TO EVENTS TO EXPECT RE: EXTUBATION. HE VERBILIZES UNDERSTANDING.
--- NOTE | 2016-04-05 15:06 | NUR ---
PT'S FAMILY HERE AND SPENT TIME AT BS THEN HER REPORTS THAT THEY ARE READY FOR TERMINAL EXTUBATION.
--- NOTE | 2016-04-05 15:30 | NUR ---
MORPHINE AND ATIVAN, REPORTED TO RT PLAN.
--- NOTE | 2016-04-05 16:12 | NUR ---
PT APPEARS COMFORTABLE AND Family reports readiness for extubation. pt extubated to 4lnc.
--- NOTE | 2016-04-05 16:19 | NUR ---
1620- pt appears dyspnic, ms 4mg given, family at bs.
--- NOTE | 2016-04-05 17:05 | NUR ---
FAMILY REPORT THAT PT WITH DIFFICULTY WITH RESPIRATIONS. MORPHINE 4MG GIVEN.
--- NOTE | 2016-04-05 19:30 | NUR ---
REPORT RECVD. CARE ASSUMED. COMFORT CARE MEASURES IN PLACE. HR 95. NO DISTRESS SEEN. SPO2 86% ON O2 AT 4 LPM. NO S/S OF DISCOMFORT. CONT CURRENT POC.
[2016-04-05 20:12] LABS: ASPERGILLUS - FLAVUS Negative (Neg:<1:1); ASPERGILLUS - FUMIGATUS Negative (Neg:<1:1); ASPERGILLUS - NIGER Negative (Neg:<1:1)
--- NOTE | 2016-04-05 22:17 | NUR ---
SPOKE WITH PT VIA PHONE. UPDATE GIVEN. PT WITH NO DISTERESS SEEN.
--- NOTE | 2016-04-05 23:09 | NUR ---
REPORT CALLED TO TAHIRA MCCANN. WILL TRANSFER PT VIA BED TO ROOM 2100. HR REMAINS STABLE AT 95. SPO2 85% ON O2 AT 4 LPM NC. NO DISTRESS SEEN. WILL CONTACT TO INFORM OF MOVE.
--- NOTE | 2016-04-05 23:18 | NUR ---
RECIEVED REPORT FROM ICU. PT WILL BE TRANFERRED TO ROOM 2101 FOR COMFORT MEASURES AND FOR FAMILY TO BE ABLE TO SPEND TIME WITH HER.
--- NOTE | 2016-04-05 23:30 | NUR ---
PT RESTING IN BED. WARM TO TOUCH. EDEMA TO BILATERAL LOWER EXTREMITIES. O2 @ 5L/NC. DOES NOT OPEN EYES TO PHYSICAL OR VERBAL STIMULI. HERRERA PATENT TO BEDSIDE DRAIN BAG WITH DARK YELLOW URINE. CONTINUE TO MONITOR, PROVIDE COMFORT MEASURES AND KEEP CLEAN/DRY. ICU NURSE, PAMELA, STATES SHE WILL CALL AND NOTIFY THAT PT WAS TRANSFERRED TO ROOM 210 FROM ICU.
[2016-04-06 01:01] VITALS: BP 124/60
[2016-04-06 05:15] LABS: BASOPHILS 0.8 % (0.0-2.0); EOSINOPHILS 1.4 % (0-7); HEMOGLOBIN 9.7 g/dL (12-16); IMMATURE GRANULOCYTES 0.9 % (0-5); LYMPHOCYTES 14.9 % (15-50); MCH 29.4 pg (26.0-34.0); MCHC 29.4 g/dL (31.0-37.0); MEAN PLATELET VOLUME 9.5 fL (7.4-10.4); MONOCYTES 9.6 % (2-11); NEUTROPHILS 72.4 % (40-80); PLATELET COUNT 398 10x3/uL (130-400); RDW 15.4 % (11.5-14.5); WBC 9.8 10x3/uL (4.8-10.8)
[2016-04-06 05:34] LABS: ALBUMIN 2.1 g/dL (3.4-5.0); BILIRUBIN - TOTAL 0.4 mg/dL (0.2-1.3); CALCIUM 8.2 mg/dL (8.5-10.1); CARBON DIOXIDE 34.5 mmol/L (21.0-32.0); CREATININE - SERUM 1.4 mg/dL (0.6-1.3); MAGNESIUM - SERUM 2.2 mg/dL (1.8-2.4)
--- NOTE | 2016-04-06 05:37 | NUR ---
SPOKE WITH PAMELA HOFFMANNSANDWICH MAKER IN ICU AND CLARIFIED THAT MD INTENDED FOR NO FURTHER DAILY LABS/XRAYS/ABGS. ALL DAILY ORDERS CANCELLED.
[2016-04-06 05:49] LABS: ANION GAP 9.2 mmol/L (8-16); POTASSIUM - SERUM 3.7 mmol/L (3.5-5.1); PROTEIN - SERUM 6.9 g/dL (6.4-8.2)
--- NOTE | 2016-04-06 07:00 | NUR ---
RECEIVED REPORT. ASSUMED CARE OF PATIENT. CALL LIGHT WITHIN REACH. SPOUSE AT BEDSIDE. PATIENT ON COMFORT MEASURES. RESP EVEN AND UNLABORED. 1ST STEP OVERLAY PATENT. NO ACUTE DISTRESS NOTED AT THIS TIME. F/C PATENT.
[2016-04-06 08:06] VITALS: BP 119/56
--- NOTE | 2016-04-06 09:40 | NUR ---
MEDICATED WITH TYLENOL SUPPOSITORY AT THIS TIME FOR ELEVATED TEMP. SPOUSE AT BEDSIDE. NO RESP DISTRESS NOTED. PATIENT OPEN EYES WHEN ROLLED TO HER SIDE FOR SUPPOSITORY ADMINISTRATION. WITH EYES CLOSED AT THIS TIME. HERRERA CATH PATENT. 1ST STEP OVERLAY PATENT.
--- NOTE | 2016-04-06 10:29 | NUR ---
RETURNED CALL TO ROMARIO VASQUEZ AT [phone] AND WAS TOLD THIS WAS A WRONG NUMBER.
--- NOTE | 2016-04-06 10:30 | NUR ---
AXILLARY TEMP 103.O AT THIS TIME. SPOUSE REMAINS AT BEDSIDE. NO DISTRESS.
[2016-04-06 12:00] VITALS: BP 109/54
--- NOTE | 2016-04-06 14:29 | NUR ---
MEDICATED FOR TEMP 103 AT THIS TIME.
--- NOTE | 2016-04-06 14:42 | NUR ---
TURNED AND REPOSITIONED. COOL CLOTH APPLIED TO FOREHEAD. NO DISTRESS AT THIS TIME. PATIENT OPENED EYES DURING REPOSITIONING.
[2016-04-06 15:33] VITALS: BP 102/52
[2016-04-06 20:00] VITALS: BP 112/68
--- NOTE | 2016-04-06 22:55 | NUR ---
NURSE ROUNDS 21:30 - PT LYING IN BED, EYES CLOSED RESPIRATIONS EVEN, LABORED, ACCESSORY MUSCLES BEING USED. O2 VIA NC IN TACT AND ON @ 3LP. PT IS UNRESPONSIVE TO ANY STIMULI, + FOR FEVER, HERRERA IN PLACE AND DRAINING. WILL CONTINUE COMFORT MEASURES. NO FAMILY AT BEDSIDE AT THIS TIME, HOWEVER I DO HAVE HER AND DAUGHTERS PHONE NUMBERS IF NEEDED.
[2016-04-07] VITALS: BP 97/65
--- NOTE | 2016-04-07 00:39 | NUR ---
PTS BREATHING IS LABORED, TACHYPNEIC, AND O2 IS @ 54% AT THIS TIME ON 3LPM. PT REMAINS UNRESPONSIVE. SECRETIONS ARE NOW PRESENT, WILL APPLY SUCTION. CONTINUE TO MONITOR CLOSELY.
--- NOTE | 2016-04-07 01:24 | NUR ---
INITIATED PTS PRN ORDER FOR MORPHINE DRAFTER ELECTROMECHANICAL R/T INCREASED DYSPNEA, AND TACHYPNEA. PTS RESPIRATIONS ARE 38 BREATHS PER MINUTE AT THIS TIME. WILL CONTINUE TO MONITOR CLOSELY.
--- NOTE | 2016-04-07 03:10 | NUR ---
02:32 WENT TO CHECK ON PT. PT IS NO LONGER BREATHING, PT IS WITHOUT A PULSE, PT IS MOTTLING. PTS , DEAN CHENEY, CALLED DURING THIS TIME TO CHECK ON HIS . I DISCUSSED WITH MR. CHENEY THAT PT IS AT THIS TIME, WITH MY SINCERE CONDOLENCES. MR. CHENEY STATED THAT HE WOULD BE UP HERE SOON. I HAVE NOTIFIED MY FOOD SERVICE ATTENDANT, MELANIE JAMES RN, OF PTS [place]. PROPER PAPERWORK COMPLETE. AWAITING FOR BEFORE I CALL THE HOME.
--- NOTE | 2016-04-07 04:31 | NUR ---
DR. SANCHEZ IN ER PRONOUNCED PTS @ 02:35 AT 04/07/16 R/T SEPSIS. KORTNEY/NORMAN WAS NOTIFIED, PT DOES NOT QUALIFY FOR DONATION, REFERENCE # [id number]. [facility] HAS BEEN CONTACTED/SALLY. PTS FAMILY STILL HAS NOT ARRIVED YET. WILL PLACE PTS [employer] TABLET AND TY CECELIA BRITT SHANIQUA IN A PERSONAL BELONGINGS BAG FOR TO RETRIEVE.
--- NOTE | 2016-04-07 05:48 | NUR ---
[facility] HAS RECEIVED PT ALONG WITH HER BELONGINGS. HAS BEEN NOTIFIED.
[2016-04-08 06:07] LABS: VIRAL - RESULT No virus isolated. (())
--- NOTE | 2016-04-09 17:01 | NUR ---
Per CMS protocol, restraint report logged into data base.
--- NOTE | 2016-04-30 08:17 | EC ---
PATIENT:APOLINAR CHENEY DATE OF SERVICE: 03/24/16 SEX: F MEDICAL RECORD: [id number] DATE OF : 53 LOCATION:D.M2 D.210 AGE OF PATIENT: 60 ADMISSION DATE: 03/24/16 REFERRING PHYSICIAN: INTERPRETING PHYSICIAN: MARLON PAYNE M.D. ECHOCARDIOGRAM REPORT ECHO CHARGES 4 ECHO COMPLETE CLINICAL DIAGNOSIS: HTN ECHOCARDIOGRAPHIC MEASUREMENTS (adult normal given) AC root (d.<3.7cm) 2.8 LV Septum d (<1.2 cm> 1.5 Valve Excursion 1.6 LV Septum (systole) 1.7 Left Atria (s.<4.0cm> 4.4 LVPW d(<1.2cm) 1.4 RV (d.<2.3cm) 2.7 LVPW (sytole) 1.9 LV diastole(<5.6CM) 4.7 MV E-F(>70mm/sec) LV systole 2.5 LVOT Diameter 1.9 MV exc.(>10mm) Est.ejection fraction (50-75%) Pericardial Effusion N DOPPLER: LVIT A 135 E 152 LA RVSP 22.0 LVOT 132 AOP1/2T Asc. Ao 273 RVOT 84.0 RA PA 156 AV Gradient Peak 30.0 AV Mean 18.1 AV Area 1.1 MV Gradient Peak 9.0 MV Mean 4.3 MV Area COMMENTS: Carbon Furnace Operator: Cary ALLENOE Animal Shelter Manager:Jeniffer Payne TAPE# PACS DATE OF SERVICE: 03/25/2016 REFERRING PHYSICIAN: Rosalind Terrell MD INDICATION: Hypertension. DESCRIPTION: Left ventricle demonstrates left ventricular hypertrophy. No wall motion abnormalities are seen. Estimated ejection fraction is 60%. Mitral valve is structurally normal. There is no regurgitation or prolapse seen. Left atrium is mildly dilated. The aortic valve leaflets are thickened. Peak ECHOCARDIOGRAM REPORT [id number] APOLINAR CHENEY gradient across the valve is 30 mmHg. Mean is 18 mmHg. There is no insufficiency seen. Right ventricle is mildly dilated. Tricuspid valve is structurally normal. There is mild regurgitation seen. Right atrium is normal in size. There is no pericardial effusion noted. IMPRESSION: 1. Left ventricular hypertrophy with preserved ejection fraction of 60%. 2. Mild aortic stenosis. 3. Mild tricuspid regurgitation. TRANSINT:[id number] Voice Confirmation ID: [id number] DOCUMENT ID: [id number] MARLON PAYNE M.D. at 0817 CC: [id number] DICTATION DATE: 03/26/16826 CHURN DRILLER HELPER: 03/26/16 1624 DIS IN 04/07/16 [place] [id number] [place] [id number]
[2016-05-01 11:19] LABS: FUNGUS MYCOLOGY CULTURE Final report (())
[2016-05-17 11:18] LABS: ACID FAST CULTURE Negative (()); ACID FAST SMEAR Negative (())
== END 2016-04-07 05:49 | DRG 870 ==
LOC: D.ER 11:34 → D.ICU 16:48 → D.M2 04-05 23:23
PROVIDERS: Family Medicine; Internal Medicine; Internal Medicine Pulmonary Disease; ADMIT Emergency Medicine
PROC: 05HD33Z Insertion of Infusion Device into Right Cephalic Vein, Percutaneous Approach (ICD-10-PCS; principal; 2016-03-25)
PROC: B54MZZA Ultrasonography of Right Upper Extremity Veins, Guidance (ICD-10-PCS; 2016-03-25)
PROC: 5A1955Z Respiratory Ventilation, Greater than 96 Consecutive Hours (ICD-10-PCS; 2016-03-25)
PROC: 5A09457 Assistance with Respiratory Ventilation, 24-96 Consecutive Hours, Continuous Positive Airway Pressure (ICD-10-PCS; 2016-03-25)
PROC: 5A12012 Performance of Cardiac Output, Single, Manual (ICD-10-PCS; 2016-03-26)
PROC: 0BH17EZ Insertion of Endotracheal Airway into Trachea, Via Natural or Artificial Opening (ICD-10-PCS; 2016-03-26)
PROC: 0T9B70Z Drainage of Bladder with Drainage Device, Via Natural or Artificial Opening (ICD-10-PCS; 2016-03-26)
PROC: 0B9B8ZX Drainage of Left Lower Lobe Bronchus, Via Natural or Artificial Opening Endoscopic, Diagnostic (ICD-10-PCS; 2016-03-28)
PROC: 0B948ZX Drainage of Right Upper Lobe Bronchus, Via Natural or Artificial Opening Endoscopic, Diagnostic (ICD-10-PCS; 2016-03-28)
PROC: 0B988ZX Drainage of Left Upper Lobe Bronchus, Via Natural or Artificial Opening Endoscopic, Diagnostic (ICD-10-PCS; 2016-03-28)
PROC: 0B958ZX Drainage of Right Middle Lobe Bronchus, Via Natural or Artificial Opening Endoscopic, Diagnostic (ICD-10-PCS; 2016-03-28)
PROC: 0B938ZX Drainage of Right Main Bronchus, Via Natural or Artificial Opening Endoscopic, Diagnostic (ICD-10-PCS; 2016-03-28)
PROC: 0B978ZX Drainage of Left Main Bronchus, Via Natural or Artificial Opening Endoscopic, Diagnostic (ICD-10-PCS; 2016-03-28)
PROC: 0B968ZX Drainage of Right Lower Lobe Bronchus, Via Natural or Artificial Opening Endoscopic, Diagnostic (ICD-10-PCS; 2016-03-28)
PROC: 0BH17EZ Insertion of Endotracheal Airway into Trachea, Via Natural or Artificial Opening (ICD-10-PCS; 2016-04-04)
DX: A41.9 Sepsis, unspecified organism (principal); J69.0 Pneumonitis due to inhalation of food and vomit; J96.01 Acute respiratory failure with hypoxia; J96.02 Acute respiratory failure with hypercapnia; G93.41 Metabolic encephalopathy; J98.11 Atelectasis; N17.9 Acute kidney failure, unspecified; I24.8 Other forms of acute ischemic heart disease; E72.20 Disorder of urea cycle metabolism, unspecified; Z68.42 Body mass index [BMI] 45.0-49.9, adult; A41.2 Sepsis due to unspecified staphylococcus; G40.909 Epilepsy, unspecified, not intractable, without status epilepticus; G47.33 Obstructive sleep apnea (adult) (pediatric); N20.0 Calculus of kidney; E11.22 Type 2 diabetes mellitus with diabetic chronic kidney disease; N18.9 Chronic kidney disease, unspecified; E03.9 Hypothyroidism, unspecified; I25.10 Atherosclerotic heart disease of native coronary artery without angina pectoris; G20 Parkinson's disease; E66.01 Morbid (severe) obesity due to excess calories; D64.9 Anemia, unspecified